=== PATIENT | male | born 1970 | race Caucasian/White ===

== ENCOUNTER 2024-04-29 13:06 | Emergency (ER) | payer OTHER, SELFPAY ==
[2024-04-29 13:09] VITALS: BP 187/104
[2024-04-29 13:15] VITALS: BP 156/114; BMI 25.9
[2024-04-29 13:56] LABS: % Basophils 0.4 % (0-2); % Eosinophils 6.7 % (0-6); % Immature Granulocytes 0.4 % (0-0.5); % Monocytes 9.5 % (1.7-9.3); Absolute Eosinophils 0.5 10^3/uL (0-0.7); Absolute Lymphocytes 1.1 10^3/uL (1.2-3.4); Absolute Monocytes 0.7 10^3/uL (0.1-0.6); Absolute Neutrophils 4.8 10^3/uL (1.4-6.5); Hematocrit 28.4 % (39.0-52.0); Hemoglobin 9.5 g/dL (13.0-18.0); Mean Corp Hgb Conc. 33.5 g/dL (33.0-37.0); Mean Corpuscular Hgb 27.7 pg (27.0-31.0); Mean Corpuscular Volume 82.8 fL (80.0-94.0); Mean Platelet Volume 9.7 fL (7.4-10.4); Nucleated Red Blood Cells % 0 % (-); Platelet Count 237 10^3/uL (130-400); Red Blood Cell Count 3.43 10^6/uL (4.70-6.10); Red Cell Dist. Width 13.8 % (11.5-14.5)
[2024-04-29 14:08] LABS: ALT (SGPT) 15 U/L (0-50); AST (SGOT) 21 U/L (17-59); Albumin 3.9 g/dl (3.5-5.0); Alkaline Phosphatase 83 U/L (38-126); Blood Urea Nitrogen 42 mg/dl (9-20); Calcium 8.8 mg/dl (8.4-10.2); Carbon Dioxide 25 mmol/L (22-30); Chloride 105 mmol/L (98-107); Estimated Creatinine Clearance 43 ml/min; Glucose 120 mg/dl (70-99); Potassium 5.2 mmol/L (3.5-5.1); Sodium 140 mmol/L (135-145); Total Bilirubin 0.2 mg/dl (0.2-1.3); eGFR 33.12
--- NOTE | 2024-04-29 14:14 | ED.GENMED ---
History of Present Illness
<LOGAN Madden - Last Filed: 04/29/24 19:02>
General
Chief Complaint: Extremity Pain (non-traumatic)
Source: patient
Exam Limitations: none
Time Seen by Provider: 04/29/24 13:42
Nursing documentation reviewed up to this point in time: agreed with
History of Present Illness
History of Present Illness:
Patient is a 54-year-old male with PMH of htn , recent dx of renal disease brought by officers from [facility]. Patient reports he does have history of ankle fracture and ankle hardware in his left ankle done by
[facility] Cast[facility]eda years ago. He has been in the incarcerated for the past 1 week and now complains of pain in his left ankle and left lower leg. He reports normally he does get some swelling if he walks a lot throughout the day however while
incarcerated he is not walking. He now is having pain that keeps him up at night. He complains of pain to the ankle lower leg and now the left knee.
He denies any fever chills.
Triage note mentions that patient stopped a toe on his right foot however he is not concerned about this.
Past History
<LOGAN Madden - Last Filed: 04/29/24 19:02>
Past History
ED Past Medical History: HTN, Renal failure (Renal insufficiency), Psychiatric (ADD) and Other (Chronic pain syndrome/chronic left ankle pain�maintained on methadone); Negative CAD
ED Past Surgical History: Orthopedic (Several left ankle surgical procedures)
Social History
Tobacco: Smoker
Alcohol: Occasional (Rare alcohol use)
Drug: Marijuana
Personal: Single
Living: with family
Family History
Family History: Hypertension
Review of Systems
<LOGAN Madden - Last Filed: 04/29/24 19:02>
Review of Systems
Allergies reviewed?: Yes
All Other Systems: ROS reviewed and negative except as documented in HPI and ROS
Constitutional: Reports no symptoms; Denies fever, fatigue or chills
Respiratory: Reports no symptoms
ABD/GI: Reports no symptoms
Musculoskeletal: Reports other (Left ankle lower leg and left knee pain )
Skin: Reports no symptoms
Neurological: Reports no symptoms
Phy Exam
<LOGAN Madden - Last Filed: 04/29/24 19:02>
General Physical Exam
General Presentation: no apparent distress
General age: appears stated age
General Skin: warm and dry
General Habitus: normal
General Mental: alert
Neurological Exam
Neurological Exam: alert
Musculoskeletal Exam
Musculoskeletal Exam: other (Bilateral lower extremities are strong pulses left ankle appears swollen also lower left leg appears swollen along with swelling of the knee. There is no obvious redness on exam to knee lower leg ankle or foot. Patient
is tender to the knee has some discomfort with flexion. )
Skin Exam
Skin Exam: normal color and warm/dry
Psychiatric Exam
Psychiatric Exam: normal mood/affect
Course
<LOGAN Madden - Last Filed: 04/29/24 19:02>
Orders/Labs/Results
Orders:
Orders
04/29/24 13:42
Complete Blood Count/With Diff Urgent
Comprehensive Metabolic Panel Urgent
04/29/24 14:15
Ankle, left 3 view CR [CR Ankle - Left Min 3 Views ] Urgent
Comment:
Reason For Exam: pain
04/29/24 14:16
Knee, Left 4 or More Views [CR Knee - Left 4 Or More View*] Urgent
Comment:
Reason For Exam: pain
Periph Venous Lwr Ext Left US [US Periph Venous LOWER Ext LT] Urgent
Comment:
Reason For Exam: swelling/pain
04/29/24 17:27
Body Fluid Cell Count Urgent
What is the Body Fluid: joint
Date Specimen was Collected: 04/29/24
Time Specimen was Collected: 17:13
Comment: with DIFF
Body Fluid Crystals Urgent
What is the Body Fluid: joint
Date Specimen was Collected: 04/29/24
Time Specimen was Collected: 17:13
Lyme Progressive Urgent
Fluid Culture with Gram Stain Urgent
ANJEL Source: Joint Fluid
Specimen Description:
Date Specimen was Collected: 04/29/24
Time Specimen was Collected: 17:13
Gram Stain Stat
ANJEL Source: Joint
Specimen Description:
Date Specimen was Collected: 04/29/24
Time Specimen was Collected: 17:13
Abnormal Lab Results
04/29/24
13:42
RBC 3.43 L 10^6/uL
(4.70-6.10)
Hgb 9.5 L g/dL
(13.0-18.0)
Hct 28.4 L %
(39.0-52.0)
Absolute Lymphs (auto) 1.1 L 10^3/uL
(1.2-3.4)
Absolute Monos (auto) 0.7 H 10^3/uL
(0.1-0.6)
Lymphocytes % 15.0 L %
(20.5-51.1)
Monocytes % 9.5 H %
(1.7-9.3)
Eosinophils % 6.7 H %
(0-6)
Potassium 5.2 H mmol/L
(3.5-5.1)
BUN 42 H mg/dl
(9-20)
Creatinine 2.3 H mg/dL
(0.7-1.3)
Glucose 120 H mg/dl
(70-99)
04/29/24 13:42
04/29/24 13:42
Vital Signs
Initial and Last Documented VS:
Initial Vital Signs
Temp Pulse Resp BP Pulse Ox
37.0 C 70 22 187/104 100
04/29/24 13:09 04/29/24 13:09 04/29/24 13:09 04/29/24 13:09 04/29/24 13:09
Last Documented Vital Signs
Temp Pulse Resp BP Pulse Ox
36.9 C 86 17 157/85 97
04/29/24 19:00 04/29/24 19:00 04/29/24 19:00 04/29/24 18:00 04/29/24 18:00
Accredited Legal Secretary consulted with Physician
Accredited Legal Secretary consulted with physician?: Yes
Name of Physician Consulted: Dr Lynne
<Eric Lynne MD - Last Filed: 04/29/24 20:16>
Orders/Labs/Results
Orders:
Orders
04/29/24 13:42
Complete Blood Count/With Diff Urgent
Comprehensive Metabolic Panel Urgent
04/29/24 14:15
Ankle, left 3 view CR [CR Ankle - Left Min 3 Views ] Urgent
Comment:
Reason For Exam: pain
04/29/24 14:16
Knee, Left 4 or More Views [CR Knee - Left 4 Or More View*] Urgent
Comment:
Reason For Exam: pain
Periph Venous Lwr Ext Left US [US Periph Venous LOWER Ext LT] Urgent
Comment:
Reason For Exam: swelling/pain
04/29/24 17:27
Body Fluid Cell Count Urgent
What is the Body Fluid: joint
Date Specimen was Collected: 04/29/24
Time Specimen was Collected: 17:13
Comment: with DIFF
Body Fluid Crystals Urgent
What is the Body Fluid: joint
Date Specimen was Collected: 04/29/24
Time Specimen was Collected: 17:13
Lyme Progressive Urgent
Fluid Culture with Gram Stain Urgent
ANJEL Source: Joint Fluid
Specimen Description:
Date Specimen was Collected: 04/29/24
Time Specimen was Collected: 17:13
Gram Stain Stat
ANJEL Source: Joint
Specimen Description:
Date Specimen was Collected: 04/29/24
Time Specimen was Collected: 17:13
Abnormal Lab Results
04/29/24
13:42
RBC 3.43 L 10^6/uL
(4.70-6.10)
Hgb 9.5 L g/dL
(13.0-18.0)
Hct 28.4 L %
(39.0-52.0)
Absolute Lymphs (auto) 1.1 L 10^3/uL
(1.2-3.4)
Absolute Monos (auto) 0.7 H 10^3/uL
(0.1-0.6)
Lymphocytes % 15.0 L %
(20.5-51.1)
Monocytes % 9.5 H %
(1.7-9.3)
Eosinophils % 6.7 H %
(0-6)
Potassium 5.2 H mmol/L
(3.5-5.1)
BUN 42 H mg/dl
(9-20)
Creatinine 2.3 H mg/dL
(0.7-1.3)
Glucose 120 H mg/dl
(70-99)
04/29/24 13:42
04/29/24 13:42
Vital Signs
Initial and Last Documented VS:
Initial Vital Signs
Temp Pulse Resp BP Pulse Ox
37.0 C 70 22 187/104 100
04/29/24 13:09 04/29/24 13:09 04/29/24 13:09 04/29/24 13:09 04/29/24 13:09
Last Documented Vital Signs
Temp Pulse Resp BP Pulse Ox
36.9 C 86 17 157/85 97
04/29/24 19:00 04/29/24 19:00 04/29/24 19:00 04/29/24 18:00 04/29/24 18:00
Procedures
<Eric Lynne MD - Last Filed: 04/29/24 20:16>
Incision/Drainage/Joint Aspiration
Left Knee:
Anethesia: 1% Lidocaine with Epi
Preparation: cleaned with Betadine
Type of procedure: aspiration
Nature of site: other (Joint effusion)
How much fluid was obtained?: number in mls (50)
Fluid description: straw colored
Treatment: bandaid applied
<LOGAN Madden - Last Filed: 04/29/24 19:02>
MDM/Problems Addressed
MDM/Problems Addressed:
Patient is document is a 54-year-old male from [facility] with history of previous left ankle injury/ hardware presents complaining of pain and swelling to left ankle lower leg and knee. He denies any actual injury to the knee but does have pain. He
denies any fever or chills. He does report he has chronic kidney disease.
On exam there is no obvious redness though he does have swelling to the ankle lower leg and knee. He is afebrile and denies any fevers his white count is normal at 7.0. His hemoglobin is now at 9.5 since he was last here he reports he was
diagnosed with chronic kidney disease. He has no complaints of weakness or black stools.
Case reviewed with Dr. Samuels who examined patient and did drain knee.
Cultures reviewed show of fluid white blood cell count of 594 no crystals were seen Lyme is pending.
No acute findings on x-rays of knee and ankle. Hardware appears to be in place. Ultrasound negative. As discussed with ED attending , stable for discharge back to alf will recommend Tylenol and outpatient Ortho follow-up
<LOGAN Madden - Last Filed: 04/29/24 19:02>
*Critical Care Note
Total Time (30-74mins, 75-104mins- exclusive of procedures): Not Applicable
ED Attending Note
<LOGAN Madden - Last Filed: 04/29/24 19:02>
-
Portions of this chart may have been created with voice recognition software.� Occasional wrong word or��sound alike� substitutions may have occurred due to the inherent limitations of voice recognition software.
<Eric Lynne MD - Last Filed: 04/29/24 20:16>
ED Attending Note
Patient seen and examined by attending physician: Yes
ED Attending Note:
I have seen and evaluated the patient with a [id number] encounter. I have spoken to the advance practicer provider and involved in the medical history, the physical exam, medical decision making.
Evaluation and management service: agree unless noted differently below.
Results interpretation: agree unless noted differently below.
Focused HPI: 54-year-old male with history as documented presents to the emergency room from [facility] for evaluation of left leg pain specifically in the left knee. Patient reports that in 2018 he had fracture and required surgery on his left ankle.
He says that since then he has had occasional pain with activity in the left leg. He says that over the past few days he has had pain despite decreased level of activity while incarcerated. He denies any fall or trauma. He says pain is down the
entire right leg but mostly in the medial knee. He notes some swelling of the leg particularly in the knee. Denies any fevers or chills. He denies any chest pain or shortness of breath. Denies any other complaints. Awake alert not in distress.
Physical exam: Vital signs significant for hypertension otherwise normal. He has some edema around the left ankle but no point tenderness in the foot or ankle; no calf edema or tenderness; has a large left knee joint effusion. No erythema or
warmth of the joint. Range of motion of the left knee limited to about 90 degrees due to effusion/pain. No tenderness in the thigh or edema in the left thigh. He has a good strong palpable left femoral, popliteal, DP and PT pulse.
Medical Decision Makin-year-old male presents for atraumatic left leg pain specifically in the left knee. He has a large left knee effusion. He had labs sent off in triage which showed anemia and chronic kidney disease which is known to the
patient. No leukocytosis. He had a DVT study done which negative. He had x-rays which I reviewed and showed no fracture. I performed arthrocentesis, will send joint fluid for cell count and culture, crystal studies. Patient had significant
symptomatic improvement after draining of his joint effusion for approximately 50 cc.
Fluid studies reviewed�WBC 594, no crystals seen. Not consistent with septic arthritis or inflammatory arthritis/gout. Suspect that this is likely osteoarthritis with joint effusion as a cause for his symptoms. They have improved with
arthrocentesis. Stable for discharge. Tylenol as needed.
Discharge Plan
Departure
Patient Disposition: [facility]
Date of Disposition: 04/29/24
Time of Disposition: 18:49
Patient with high blood pressure during this ER visit?: Yes
Condition: Fair
Covid-19: Not Applicable
Discharge Problem:
Acute knee pain, Ankle pain
Prescriptions:
No Action
methadone 10 mg Tablet
20 mg PO TID
Patient Comments:
called [facility] [phone]- last filled on 09/13/22 for a #180 for 30 days supply
amlodipine [Norvasc] 10 mg Tablet
10 mg PO DAILY
dextroamphetamine-amphetamine [Adderall] 20 mg Tablet
20 mg PO DAILY
Patient Comments:
called [facility] [phone]- last filled on 09/24/22 for a #30 for 30 days supply
clonidine HCl 0.2 mg Tablet
0.2 mg PO TID
Referrals:
[facility] [Family Provider] -
Activity Restrictions/Additional Instructions:
It is recommended the patient be evaluated by orthopedics. Patient had a knee effusion which was drained here in the ER no evidence of infection.
X-rays of ankle were also done which does show that hardware is in place.
patient had a negative ultrasound of left leg.
Patient may have Tylenol as needed for discomfort
Interventions
Interventions:
*Risk Screen - Suicide Last Done: 04/29/24 13:06
*General Assessment Last Done: 04/29/24 13:06
*Neglect/Abuse Screening Last Done: 04/29/24 13:06
ED- Fall Risk Assessment Last Done: 04/29/24 13:06
*Nursing Disposition Last Done: 04/29/24 19:00
ED-Skin Assessment Last Done: 04/29/24 13:06
ED-Peripheral Vascular Assessment Last Done: 04/29/24 13:06
ED-Musculoskeletal Assessment Last Done: 04/29/24 13:06
Discharge Date and Time
Discharge Date/Time: 04/29/24 18:59
Print Language: SURINAMESE
[2024-04-29 18:00] VITALS: BP 157/85
[2024-04-29 18:13] LABS: Body Fluid Mononuclear 47.1 %; Body Fluid Polymorphonuclear 52.9 %; Body Fluid WBC 594 /CUMM
[2024-04-29 18:30] LABS: Body Fluid Second Tech CMC
[2024-04-30 15:41] LABS: Lyme Antibody Screen, EIA Negative (Negative)
== END 2024-04-29 18:59 ==
LOC: EMR 13:06
PROVIDERS: Emergency Medicine; EMERGENCY PHYSICIAN Emergency Medicine
DX: M25.562 Pain in left knee (principal); M25.572 Pain in left ankle and joints of left foot; M25.462 Effusion, left knee; M79.662 Pain in left lower leg; R60.0 Localized edema; R03.0 Elevated blood-pressure reading, without diagnosis of hypertension; I12.9 Hypertensive chronic kidney disease with stage 1 through stage 4 chronic kidney disease, or unspecified chronic kidney disease; N18.9 Chronic kidney disease, unspecified; G89.4 Chronic pain syndrome; F17.200 Nicotine dependence, unspecified, uncomplicated; Z79.891 Long term (current) use of opiate analgesic
CPT/HCPCS: 99284; 20610; 73564; 73610; 80053; 85025; 86618; 87015; 87070; 87205; 89051; 89060; 93971

== ENCOUNTER 2024-05-25 18:43 | Inpatient (IN) | payer OTHER, SELFPAY ==
[2024-05-25] VITALS (18 sets, daily range): BP systolic 151–224; BP diastolic 99–129; BMI 26.7
--- NOTE | 2024-05-25 09:53 | ED.GENMED ---
History of Present Illness
<Chauncey Whitmore Jr., PA-C - Last Filed: 05/26/24 15:07>
General
Chief Complaint: Chest Pain
Source: patient
Exam Limitations: none
Time Seen by Provider: 05/25/24 09:33
Nursing documentation reviewed up to this point in time: agreed with
History of Present Illness
History of Present Illness:
54-year-old male past medical history of hypertension previous substance abuse presenting from long term with concerns of intermittent achy left-sided chest discomfort of the past few days. He did have an episode earlier today was given aspirin and
nitro en route with improvement. No ongoing symptoms at this point. Does have a slight associated shortness of breath. Denies any fevers recent illness, vomiting. No history of heart disease.
Past History
<Chauncey Whitmore Jr., PA-C - Last Filed: 05/26/24 15:07>
Past History
ED Past Medical History: HTN, Renal failure (Renal insufficiency), Psychiatric (ADD) and Other (Chronic pain syndrome/chronic left ankle pain�maintained on methadone); Negative CAD
ED Past Surgical History: Orthopedic (Several left ankle surgical procedures)
Social History
Tobacco: Smoker
Alcohol: Occasional (Rare alcohol use)
Drug: Marijuana
Personal: Single
Living: with family
Family History
Family History: Hypertension
Review of Systems
<Chauncey Whitmore Jr., PA-C - Last Filed: 05/26/24 15:07>
Review of Systems
Allergies reviewed?: Yes
All Other Systems: ROS reviewed and negative except as documented in HPI and ROS
Phy Exam
<Chauncey Whitmore Jr., PA-C - Last Filed: 05/26/24 15:07>
Physical Exam
Physical Exam:
GENERAL: Alert , in no apparent distress
EYE: pupils equal and reactive
NECK: Supple, no significant adenopathy.
ENT: o/p clr, mmm.
CARDIAC: Regular rate and rhythm .
LUNGS: Clear breath sounds bilaterally, no acute respiratory distress, no wheezes/rales/rhonchi
ABDOMEN: Soft, without focal tenderness, no r/g, no cvat
NEUROLOGICAL: Alert and oriented, no focal neuro deficits
SKIN: Warm and dry, skin intact.
MUSCULOSKELETAL: No edema, well perfused.
PSYCH: Normal and appropriate interaction.
Scores
<Chasity Cordoba [employer] - Last Filed: 05/25/24 22:38>
Heart Score for Chest Pain Patients
STEMI patient?: Not applicable
Course
<Chauncey Whitmore Jr., PA-C - Last Filed: 05/26/24 15:07>
Orders/Labs/Results
Orders:
Orders
05/25/24 09:36
EKG [Electrocardiogram (*1)] Urgent
Reason for Study: Chest Pain
EKG- Treatment ONCE
05/25/24 09:50
CR Chest - 2 Views Urgent
Comment:
Reason For Exam: cp
05/25/24 Lunch
Cholesterol Lowering
At Your Request: Full Participation
Does patient need a safe tray?: Yes
Cholesterol Lowering: Sodium, 2 Gram
05/25/24 10:07
Alcohol Urgent
Complete Blood Count/With Diff Urgent
Comprehensive Metabolic Panel Urgent
Magnesium Urgent
Troponin I Urgent
05/25/24 11:06
Chest Angio w/wo Contrast CT [CT Chest Angio W/wo Iv Contras] Urgent
Comment:
Reason For Exam: cp abdnomal cxr aorta
05/25/24 11:43
0.9% Sodium Chloride 250 ml [Nss] 250 ml IV BOLUS
05/25/24 12:33
EKG [Electrocardiogram (*1)] Urgent
Reason for Study: Chest Pain
05/25/24 12:34
EKG- Treatment ONCE
05/25/24 13:22
Troponin I Urgent
05/25/24 14:34
Acetaminophen [Tylenol] 1,000 mg PO NOW STA
Clonidine [Catapres] 0.3 mg PO NOW STA
Diphenhydramine [Benadryl] 25 mg IV NOW STA
Ketorolac [Toradol] 15 mg IV NOW STA
Metoclopramide [Reglan] 10 mg IV NOW STA
05/25/24 14:38
Famotidine [Pepcid] 20 mg IV NOW STA
05/25/24 14:39
EKG [Electrocardiogram (*1)] Urgent
Reason for Study: Chest Pain
EKG- Treatment ONCE
05/25/24 17:03
HydrALAZINE [Apresoline] 10 mg IV NOW STA
05/25/24 18:24
Admit/Transfer Patient As Directed
Co-Sign Provider:
Level of Care: Inpatient admission
Assign to:: Telemetry
Physician / Group: boyer/hospitalist
Diagnosis: HTN/Chest pain
Reason for Telemetry: Chest Pain syndromes
Date to Stop Telemetry: 05/27/24
Time to Stop Telemetry: 11:00
Reason for Hospitalization: HTN/Chest pain
Expected length of stay greater than two midnights?: Yes
ELOS- Estimated Length of Stay in days: 3
I certify the patient meets the requirements for IP care: Yes
Code Status As Directed
Resuscitation Status: Full Code
PRN Pain Medication Management As Directed
May give lesser potent ordered pain med per pt: Yes
preference::
Protocol:: Medication orders for pain may be administered in a
manner that supports deferring to patient preference
when the pt is:
- Requesting an ordered lesser potent pain medication.
Least to most potent pain medications are defined
as: acetaminophen < NSAID < tramadol < opioids
(morphine, oxycodone, hydromorphone).
- Requesting a lesser dose of the same medication IF
ORDERED.
- Requesting a less intrusive route of administration
if both routes are prescribed by the provider (PO <
IV).
05/25/24 19:23
0.9% Sodium Chloride 1000 ml [Nss] 1,000 ml IV 80 mls/hr
Amlodipine [Norvasc] 10 mg PO DAILY
Bisacodyl [Dulcolax] 10 mg RECTAL [id number] PRN
Docusate W/Senna [Senokot-S] 1 tablet PO BIDPRN PRN
HYDROmorphone [Dilaudid] 0.25 mg IV Q4HPRN PRN
HydrALAZINE [Apresoline] 10 mg IV Q6HPRN PRN
Ondansetron Injectable [Zofran] 4 mg IV Q6HPRN PRN
Polyethylene Glycol Powder [Miralax] 17 grams PO DAILYPRN PRN
05/25/24 19:23
Urinalysis Reflex To Culture Routine
Urine Drug Abuse Screen Routine
Activity As Directed
Activity Level: Out of Bed-Early Mobility
Bladder Scan As Directed
Follow Bladder Retention/Intermittent Cath Algorithm?: Yes
PRN if no void in __ hours: 6
Frequency: Per Retention Algorithm
If Bladder Scan Result >: 400
then:: Straight cath
Straight Cath As Directed
Frequency: Per Retention Algorithm
Additional Instructions: straight cath as needed per acute urinary retention algorithm for 24 hrs
Additional Instructions: for bladder scan greater than 400 mL
Vital Signs As Directed
Frequency: Per unit guidelines
DX Deep Vein Thrombosis Video Routine
05/25/24 20:00
HydrALAZINE [Apresoline] 25 mg PO BID
05/25/24 21:00
Acetaminophen [Tylenol] 650 mg PO Q4HPRN PRN
05/25/24 22:00
Clonidine [Catapres] 0.3 mg PO TID
Dicyclomine [Bentyl] 10 mg PO TID
Nortriptyline [Pamelor] 25 mg PO HS
Tamsulosin [Flomax] 0.8 mg PO HS
05/26/24 00:00
Heparin 5,000 units SC Q8
05/26/24 08:00
Buprenorphine [Subutex] 16 mg SL DAILY
Escitalopram Oxalate [Lexapro] 15 mg PO DAILY
05/26/24 09:19
Basic Metabolic Panel IN AM
Magnesium IN AM
NT-proBNP IN AM
05/27/24 06:00
Basic Metabolic Panel IN AM
05/27/24 11:00
DC Protocol for Telemetry ONCE
05/28/24 06:00
Basic Metabolic Panel IN AM
Abnormal Lab Results
05/25/24
10:07
RBC 3.57 L 10^6/uL
(4.70-6.10)
Hgb 10.2 L g/dL
(13.0-18.0)
Hct 31.1 L %
(39.0-52.0)
MCHC 32.8 L g/dL
(33.0-37.0)
Absolute Lymphs (auto) 1.1 L 10^3/uL
(1.2-3.4)
Absolute Eos (auto) 0.8 H 10^3/uL
(0-0.7)
Lymphocytes % 15.1 L %
(20.5-51.1)
Eosinophils % 10.3 H %
(0-6)
BUN 44 H mg/dl
(9-20)
Creatinine 2.1 H mg/dL
(0.7-1.3)
Glucose 108 H mg/dl
(70-99)
05/25/24 10:07
05/25/24 10:07
Vital Signs
Initial and Last Documented VS:
Initial Vital Signs
Temp Pulse Resp BP Pulse Ox
98.3 F 61 16 174/108 98
05/25/24 09:31 05/25/24 09:31 05/25/24 09:31 05/25/24 09:31 05/25/24 09:31
Last Documented Vital Signs
Temp Pulse Resp BP Pulse Ox
97.9 F 58 12 146/82 99
05/26/24 07:00 05/26/24 07:00 05/26/24 07:00 05/26/24 11:47 05/26/24 07:00
<Chasity Cordoba [employer] - Last Filed: 05/25/24 22:38>
Orders/Labs/Results
Orders:
Orders
05/25/24 09:36
EKG [Electrocardiogram (*1)] Urgent
Reason for Study: Chest Pain
EKG- Treatment ONCE
05/25/24 09:50
CR Chest - 2 Views Urgent
Comment:
Reason For Exam: cp
05/25/24 Lunch
Cholesterol Lowering
At Your Request: Full Participation
Does patient need a safe tray?: Yes
Cholesterol Lowering: Sodium, 2 Gram
05/25/24 10:07
Alcohol Urgent
Complete Blood Count/With Diff Urgent
Comprehensive Metabolic Panel Urgent
Magnesium Urgent
Troponin I Urgent
05/25/24 11:06
Chest Angio w/wo Contrast CT [CT Chest Angio W/wo Iv Contras] Urgent
Comment:
Reason For Exam: cp abdnomal cxr aorta
05/25/24 11:43
0.9% Sodium Chloride 250 ml [Nss] 250 ml IV BOLUS
05/25/24 12:33
EKG [Electrocardiogram (*1)] Urgent
Reason for Study: Chest Pain
05/25/24 12:34
EKG- Treatment ONCE
05/25/24 13:22
Troponin I Urgent
05/25/24 14:34
Acetaminophen [Tylenol] 1,000 mg PO NOW STA
Clonidine [Catapres] 0.3 mg PO NOW STA
Diphenhydramine [Benadryl] 25 mg IV NOW STA
Ketorolac [Toradol] 15 mg IV NOW STA
Metoclopramide [Reglan] 10 mg IV NOW STA
05/25/24 14:38
Famotidine [Pepcid] 20 mg IV NOW STA
05/25/24 14:39
EKG [Electrocardiogram (*1)] Urgent
Reason for Study: Chest Pain
EKG- Treatment ONCE
05/25/24 17:03
HydrALAZINE [Apresoline] 10 mg IV NOW STA
05/25/24 18:24
Admit/Transfer Patient As Directed
Co-Sign Provider:
Level of Care: Inpatient admission
Assign to:: Telemetry
Physician / Group: boyer/hospitalist
Diagnosis: HTN/Chest pain
Reason for Telemetry: Chest Pain syndromes
Date to Stop Telemetry: 05/27/24
Time to Stop Telemetry: 11:00
Reason for Hospitalization: HTN/Chest pain
Expected length of stay greater than two midnights?: Yes
ELOS- Estimated Length of Stay in days: 3
I certify the patient meets the requirements for IP care: Yes
Code Status As Directed
Resuscitation Status: Full Code
PRN Pain Medication Management As Directed
May give lesser potent ordered pain med per pt: Yes
preference::
Protocol:: Medication orders for pain may be administered in a
manner that supports deferring to patient preference
when the pt is:
- Requesting an ordered lesser potent pain medication.
Least to most potent pain medications are defined
as: acetaminophen < NSAID < tramadol < opioids
(morphine, oxycodone, hydromorphone).
- Requesting a lesser dose of the same medication IF
ORDERED.
- Requesting a less intrusive route of administration
if both routes are prescribed by the provider (PO <
IV).
05/25/24 19:23
0.9% Sodium Chloride 1000 ml [Nss] 1,000 ml IV 80 mls/hr
Amlodipine [Norvasc] 10 mg PO DAILY
Bisacodyl [Dulcolax] 10 mg RECTAL [id number] PRN
Docusate W/Senna [Senokot-S] 1 tablet PO BIDPRN PRN
HYDROmorphone [Dilaudid] 0.25 mg IV Q4HPRN PRN
HydrALAZINE [Apresoline] 10 mg IV Q6HPRN PRN
Ondansetron Injectable [Zofran] 4 mg IV Q6HPRN PRN
Polyethylene Glycol Powder [Miralax] 17 grams PO DAILYPRN PRN
05/25/24 19:23
Urinalysis Reflex To Culture Routine
Urine Drug Abuse Screen Routine
Activity As Directed
Activity Level: Out of Bed-Early Mobility
Bladder Scan As Directed
Follow Bladder Retention/Intermittent Cath Algorithm?: Yes
PRN if no void in __ hours: 6
Frequency: Per Retention Algorithm
If Bladder Scan Result >: 400
then:: Straight cath
Straight Cath As Directed
Frequency: Per Retention Algorithm
Additional Instructions: straight cath as needed per acute urinary retention algorithm for 24 hrs
Additional Instructions: for bladder scan greater than 400 mL
Vital Signs As Directed
Frequency: Per unit guidelines
DX Deep Vein Thrombosis Video Routine
05/25/24 20:00
HydrALAZINE [Apresoline] 25 mg PO BID
05/25/24 21:00
Acetaminophen [Tylenol] 650 mg PO Q4HPRN PRN
05/25/24 22:00
Clonidine [Catapres] 0.3 mg PO TID
Dicyclomine [Bentyl] 10 mg PO TID
Nortriptyline [Pamelor] 25 mg PO HS
Tamsulosin [Flomax] 0.8 mg PO HS
05/26/24 00:00
Heparin 5,000 units SC Q8
05/26/24 08:00
Buprenorphine [Subutex] 16 mg SL DAILY
Escitalopram Oxalate [Lexapro] 15 mg PO DAILY
05/26/24 09:19
Basic Metabolic Panel IN AM
Magnesium IN AM
NT-proBNP IN AM
05/27/24 06:00
Basic Metabolic Panel IN AM
05/27/24 11:00
DC Protocol for Telemetry ONCE
05/28/24 06:00
Basic Metabolic Panel IN AM
Abnormal Lab Results
05/25/24
10:07
RBC 3.57 L 10^6/uL
(4.70-6.10)
Hgb 10.2 L g/dL
(13.0-18.0)
Hct 31.1 L %
(39.0-52.0)
MCHC 32.8 L g/dL
(33.0-37.0)
Absolute Lymphs (auto) 1.1 L 10^3/uL
(1.2-3.4)
Absolute Eos (auto) 0.8 H 10^3/uL
(0-0.7)
Lymphocytes % 15.1 L %
(20.5-51.1)
Eosinophils % 10.3 H %
(0-6)
BUN 44 H mg/dl
(9-20)
Creatinine 2.1 H mg/dL
(0.7-1.3)
Glucose 108 H mg/dl
(70-99)
05/25/24 10:07
05/25/24 10:07
Vital Signs
Initial and Last Documented VS:
Initial Vital Signs
Temp Pulse Resp BP Pulse Ox
98.3 F 61 16 174/108 98
05/25/24 09:31 05/25/24 09:31 05/25/24 09:31 05/25/24 09:31 05/25/24 09:31
Last Documented Vital Signs
Temp Pulse Resp BP Pulse Ox
97.9 F 58 12 146/82 99
05/26/24 07:00 05/26/24 07:00 05/26/24 07:00 05/26/24 11:47 05/26/24 07:00
<Chauncey Whitmore Jr., PA-C - Last Filed: 05/26/24 15:07>
MDM/Problems Addressed
MDM/Problems Addressed:
54-year-old male presenting to the emergency department today with concerns of chest pain intermittently described as aching to the left chest over the past few days no specific palliation or provocation slight associated shortness of breath. No
nausea vomiting fevers recent illness. Upon arrival blood pressure is elevated otherwise vital signs are normal. No history of blood clots recent trauma surgery immobilization, leg swelling. Low risk for PE. Initial EKG normal. Labs obtained
showing normal troponin level creatinine level at patient's baseline. Patient did claim to have ongoing chest discomforts chest x-ray showing tortuosity of the aorta considering this CT scan was performed that did not show any emergent findings.
EKG was repeated as well as troponin repeated which was both normal. Patient claims that he did not have recurrence of worsening chest discomfort.
<Chasity Cordoba NP - Last Filed: 05/25/24 22:38>
MDM/Problems Addressed
MDM/Problems Addressed:
54-year-old male presenting to the emergency department today with concerns of chest pain intermittently described as aching to the left chest over the past few days no specific palliation or provocation slight associated shortness of breath. No
nausea vomiting fevers recent illness. Upon arrival blood pressure is elevated otherwise vital signs are normal. No history of blood clots recent trauma surgery immobilization, leg swelling. Low risk for PE. Initial EKG normal. Labs obtained
showing normal troponin level creatinine level at patient's baseline. Patient did claim to have ongoing chest discomforts chest x-ray showing tortuosity of the aorta considering this CT scan was performed that did not show any emergent findings.
EKG was repeated as well as troponin repeated which was both normal. Patient claims that he did not have recurrence of worsening chest discomfort.
4:00 p.m.
BP 168/99, pt sleeping
5:00 PM:
Patient is awake but groggy, denies chest pain, denies headache but his head feels groggy
Case discussed with Dr. Blandon who recommends hydralazine 10 mg IV and reevaluate
5:50 p.m
After Hydralazine IV, BP remains 187/105
Pt came to the emergency department today with concerns of chest discomfort. He had a reassuring examination with multiple normal EKGs and troponin levels as well as a CT scan without emergent findings. Found to have an incidental finding on CT
scan of liver as well as kidney cysts. Pt informed of these and recommended follow closely with the primary care doctor for repeated imaging as an outpatient.
Pt denies CP, headache
Discussed with Dr Blandon who agrees admit with hypertensive urgency
Hospitalist notified of admission
<Chasity Cordoba NP - Last Filed: 05/25/24 22:38>
*Critical Care Note
Total Time (30-74mins, 75-104mins- exclusive of procedures): Not Applicable
ED Attending Note
<Chauncey Whitmore Jr., PA-C - Last Filed: 05/26/24 15:07>
-
Portions of this chart may have been created with voice recognition software.� Occasional wrong word or��sound alike� substitutions may have occurred due to the inherent limitations of voice recognition software.
Discharge Plan
Departure
Patient Disposition: Admit
Date of Disposition: 05/25/24
Time of Disposition: 18:00
Admit to: Med/Surg
Presentation/result/management discussed w/ accepting MD/DO: Hospitalist
Patient with high blood pressure during this ER visit?: No
Condition: Good
Covid-19: Not Applicable
Discharge Problem:
Hypertensive urgency, Chest pain
Interventions
Interventions:
*Risk Screen - Suicide Last Done: 05/25/24 09:31
*General Assessment Last Done: 05/25/24 09:31
*Neglect/Abuse Screening Last Done: 05/25/24 09:31
ED- Fall Risk Assessment Last Done: 05/25/24 10:26
*ED COVID-19 Vaccine History Last Done: 05/25/24 10:24
*Nursing Disposition Last Done: 05/25/24 19:18
ED- Cardiac Assessment Last Done: 05/25/24 10:24
Discharge Date and Time
Discharge Date/Time: 05/25/24 19:19
[2024-05-25 10:14] LABS: % Basophils 0.4 % (0-2); % Eosinophils 10.3 % (0-6); % Immature Granulocytes 0.3 % (0-0.5); % Lymphocytes 15.1 % (20.5-51.1); % Monocytes 7.7 % (1.7-9.3); % Neutrophils 66.2 % (42.2-75.2); Absolute Eosinophils 0.8 10^3/uL (0-0.7); Absolute Lymphocytes 1.1 10^3/uL (1.2-3.4); Absolute Monocytes 0.6 10^3/uL (0.1-0.6); Absolute Neutrophils 4.9 10^3/uL (1.4-6.5); Hematocrit 31.1 % (39.0-52.0); Hemoglobin 10.2 g/dL (13.0-18.0); Mean Corp Hgb Conc. 32.8 g/dL (33.0-37.0); Mean Corpuscular Hgb 28.6 pg (27.0-31.0); Mean Corpuscular Volume 87.1 fL (80.0-94.0); Mean Platelet Volume 9.8 fL (7.4-10.4); Nucleated Red Blood Cells % 0 % (-); Platelet Count 157 10^3/uL (130-400); Red Blood Cell Count 3.57 10^6/uL (4.70-6.10); White Blood Cell Count 7.4 10^3/uL (4.8-10.8)
[2024-05-25 10:28] LABS: ALT (SGPT) 16 U/L (0-50); AST (SGOT) 22 U/L (17-59); Albumin 3.9 g/dl (3.5-5.0); Alkaline Phosphatase 62 U/L (38-126); Blood Urea Nitrogen 44 mg/dl (9-20); Calcium 8.8 mg/dl (8.4-10.2); Carbon Dioxide 30 mmol/L (22-30); Chloride 102 mmol/L (98-107); Glucose 108 mg/dl (70-99); Magnesium 1.9 mg/dl (1.6-2.3); Potassium 5.1 mmol/L (3.5-5.1); Sodium 139 mmol/L (135-145); Total Bilirubin 0.3 mg/dl (0.2-1.3); Total Protein 6.9 g/dl (6.3-8.2); eGFR 36.95
[2024-05-25 10:39] LABS: Troponin I < 0.012 ng/ml
[2024-05-25] MEDS: NSS 250 IV (12:24)
[2024-05-25 13:58] LABS: Troponin I < 0.012 ng/ml
[2024-05-25] MEDS: TYLENOL 1000 MG PO (14:48)
[2024-05-25] MEDS: TORADOL 15 MG IV (14:49)
[2024-05-25] MEDS: CATAPRES 0.3 MG PO (14:49)
[2024-05-25] MEDS: PEPCID 20 MG IV (14:51)
[2024-05-25] MEDS: BENADRYL 25 MG IV (14:51)
[2024-05-25] MEDS: REGLAN 10 MG IV (14:52)
[2024-05-25] MEDS: APRESOLINE 10 MG IV ×2 (17:27→22:37)
--- NOTE | 2024-05-25 18:11 | HPS.HSE ---
Addendum entered and electronically signed by Tim Hernandez MD 05/25/24 18:36:
Allergies
Allergy/AdvReac Type Severity Reaction Status Date / Time
No Known Allergies Allergy Verified 05/25/24 09:30
Home Medications
acetaminophen 325 mg tablet 650 mg PO BIDPRN PRN mild pain 05/25/24
buprenorphine HCl 8 mg sublingual tablet 16 mg sublingual DAILY 05/25/24
clonidine HCl 0.3 mg tablet 0.3 mg PO TID 05/25/24
dicyclomine 10 mg capsule 10 mg PO TID 05/25/24
docusate sodium 100 mg capsule 100 mg PO BIDPRN PRN constipation 05/25/24
escitalopram oxalate 10 mg tablet 15 mg PO DAILY 05/25/24
hydralazine 25 mg tablet 25 mg PO DAILY 05/25/24
lisinopril 20 mg tablet 20 mg PO DAILY 05/25/24
nortriptyline 25 mg capsule 25 mg PO HS 05/25/24
tamsulosin 0.4 mg capsule 0.8 mg PO HS 05/25/24
Original Note:
Family Physician
-
Family Physician: [facility]. Correction
Chief Complaint
-
Chest pain
History of Present Illness
54-year-old male who is presenting from the [facility] with complaints of chest discomfort. Patient received aspirin and nitroglycerin. Patient in the ER was evaluated. Patient complains that the chest pain has resolved and now complains of shortness
of breath at rest. Denies any PND, orthopnea, and lower extremity edema. Denies any aggravating alleviating factors. States nitroglycerin did not help with the chest pain. Denies any prior cardiac history. Does not recall name of blood
pressure medication he takes on regular basis. Used to drugs in the past. In the ER patient underwent CT angiogram with IV contrast with creatinine of 2.1 on admission. In addition patient also received clonidine, Reglan, Benadryl, Toradol,
hydralazine, Pepcid and IV fluids. Patient also complaining of decreased urinary stream and hesitation for the past few weeks. Denies dysuria. Denies any nausea or vomiting. Denies any blurry vision or headache.
Medical History
Past Medical History
Past Medical History: Reports Other
Additional Past Medical History:
Primary hypertension
CKD stage IV
History of tobacco abuse
History of drug abuse/meth
Anemia
Past Surgical History: Reports Orthopedic (Ankle surgery)
Social History
Tobacco: Former Smoker (Used to smoke 1-1.5 packs/day.-)
Alcohol: Former
Drug: Former User
Family History
Family History: Not pertinent
Allergies / Home Medications
Allergies reflects when Allergies were last updated in [employer].
Home Medications with original date entered in [employer]
Allergy/Medication List:
Medications on admission are unable to be verified or confirmed at this time.
Review of Systems
-
History Source: Patient
A 12 point ROS was completed and negative except as noted: Yes
Physical Exam
Vital Signs
Vital Signs
Temp Pulse Resp BP Pulse Ox
98.3 F 52 13 187/105 98
05/25/24 09:31 05/25/24 17:45 05/25/24 17:45 05/25/24 17:35 05/25/24 09:31
Physical Exam
General: Well Developed, Well Nourished and No Apparent Distress
HEENT: NormoCephalic, Anicteric, Moist mucous membranes, Atraumatic, No Ptosis, Nose Appears Normal and Ears Appear Normal
Respiratory: Clear and Non Labored Respirations; No Accessory Resp Muscle Use
Cardiac: S1/S2, Regular Rhythm and Bradycardia; No Murmur, Rub, Peripheral Edema or JVD
GI: Soft, Non Tender, Non Distended and Normal Bowel Sounds; No Organomegaly
Rectal: Deferred by Provider
Musculoskeletal: No Clubbing, No Cyanosis and No Edema
Skin: No Rash
Neuro: Awake, Alert, Oriented, AO x 3, No Motor Deficits and Nonfocal/grossly intact
Psych: Calm
Laboratory Results
-
05/25/24 10:07
05/25/24 10:07
Laboratory Results
Total Bilirubin 0.3 mg/dl (0.2-1.3) 05/25/24 10:07
AST 22 U/L (17-59) 05/25/24 10:07
ALT 16 U/L (0-50) 05/25/24 10:07
Alkaline Phosphatase 62 U/L (38-126) 05/25/24 10:07
Troponin I < 0.012 ng/ml 05/25/24 13:22
Data Reviewed
-
Diagnostic Radiology: Report Reviewed by me and Discussed with Patient
CT Scan: Report Reviewed by me and Discussed with Patient
Lab Data: Labs Reviewed by me and Discussed with Patient
Impression/Plan
-
#Hypertension urgency suspected noncompliance
#Primary hypertension
Awaiting home med rec
Patient with history of CKD. Patient also has bradycardia
Start patient on hydralazine p.o. and IV as needed
? On Norvasc at home. Can start patient on 10 mg of Norvasc
Check patient UDS and alcohol level
#Chest pain atypical
Troponin x 2 check found to be negative
Trend for 1 more set
EKG with normal sinus rhythm. Ventricular rate of 50. Sinus bradycardia. Possible J-point elevation (which was also noted on EKG from 10/18/2022).
Nitroglycerin as needed for chest pain
Avoids NSAIDs
Check patient UDS and alcohol level
CT angiogram was performed in ER negative for dissection aneurysm hematoma or ulcer. Negative for pulmonary embolism. No pericardial effusion.
#CKD stage IV
Patient with creatinine of 2.1. Patient received IV contrast W/CT chest in ER
Will give patient slow Normal Saline IV fluids additional to prevent ATN/contrast nephropathy overnight x 1L only.
Patient also states of decreased urinary stream
Check UA
Bladder scan and straight cath per the protocol
If retention may need to start Flomax
#Normocytic anemia
Trend hemoglobin for now
History of tobacco abuse
History of polysubstance abuse
History of ADD
DVT prophylaxis heparin subcu
Full code
Awaiting home med reconciliation
I spent a total of 77 minutes with the patient or on the floor. More than 50% of this time involved counseling and coordination of care.
[2024-05-25] MEDS: NSS 1000 IV (20:04)
[2024-05-25] MEDS: APRESOLINE 25 MG PO (20:10)
[2024-05-25] MEDS: SENOKOT-S 1 TABLET PO (20:10)
[2024-05-25] MEDS: NORVASC 10 MG PO (20:10)
[2024-05-25 22:10] LABS: Alcohol None Detected
[2024-05-26] VITALS (8 sets, daily range): BP systolic 118–214; BP diastolic 66–115
--- NOTE | 2024-05-26 | PTCARENOTE ---
Patient received from in bed, Patient shackled to bed at right foot. 2 [facility] guards with patient. Patient visibly uncomfortable, states he has been unable to void and is unsure when the last time he voided was. Patient assisted to standing
position at bedside, patient able to void in urinal while standing, 1200 ml of clear yellow urine in urinal. Patient still reports a sensation of needing to urinate. Bladder remains distended, firm. Bladder scan amount 471 ml. Patient catheterized
for 500ml of urine. Patient reports relief in abdominal pain. BP 215/114 upon transfer to . See MAR. Pt. c/o MAE. Medicated per orders. Care ongoing, guards remain at bedside. Will continue to monitor.
[2024-05-26] MEDS: CATAPRES 0.3 MG PO ×4 (00:03→21:42)
[2024-05-26] MEDS: FLOMAX 0.8 MG PO ×2 (00:03→21:42)
[2024-05-26] MEDS: PAMELOR 25 MG PO ×2 (00:07→21:42)
[2024-05-26] MEDS: HEPARIN 5000 UNITS SC ×3 (00:07→16:28)
[2024-05-26] MEDS: DILAUDID 0.25 MG IV (00:10)
[2024-05-26] MEDS: BENTYL PO (00:25)
[2024-05-26] MEDS: SUBUTEX 16 MG SL (08:34)
[2024-05-26] MEDS: TYLENOL 650 MG PO (08:34)
[2024-05-26] MEDS: BENTYL 10 MG PO (08:35)
[2024-05-26] MEDS: APRESOLINE PO ×2 (08:36→08:42)
[2024-05-26] MEDS: APRESOLINE 10 MG IV (08:36)
[2024-05-26] MEDS: NORVASC 10 MG PO (08:36)
[2024-05-26] MEDS: LEXAPRO 15 MG PO (08:36)
[2024-05-26] MEDS: APRESOLINE 75 MG PO ×3 (08:44→21:42)
[2024-05-26 09:42] LABS: Blood Urea Nitrogen 47 mg/dl (9-20); Calcium 9.4 mg/dl (8.4-10.2); Carbon Dioxide 27 mmol/L (22-30); Chloride 100 mmol/L (98-107); Estimated Creatinine Clearance 43 ml/min; Glucose 102 mg/dl (70-99); Potassium 5.5 mmol/L (3.5-5.1); Sodium 141 mmol/L (135-145); eGFR 33.12
[2024-05-26 09:50] LABS: Troponin I < 0.012 ng/ml
[2024-05-26 09:51] LABS: NT-proBNP 2150 pg/ml
--- NOTE | 2024-05-26 11:20 | W.PN.HOSP.TC ---
Addendum entered and electronically signed by Tim Hernandez MD 05/27/24 10:15:
late addendum-pt was seen and examined too on 05/26/24.
General: Well Developed, Well Nourished and No Apparent Distress, Guards at bedside
HEENT: NormoCephalic, Anicteric, Moist mucous membranes, Atraumatic, No Ptosis, Nose Appears Normal and Ears Appear Normal
Respiratory: Clear and Non Labored Respirations; No Accessory Resp Muscle Use
Cardiac: S1/S2, Regular Rhythm and Bradycardia; No Murmur, Peripheral Edema or JVD
GI: Soft, Non Tender, Non Distended and Normal Bowel Sounds; No Organomegaly
Rectal: Deferred by Provider
Musculoskeletal: No Clubbing, No Cyanosis and No Edema
Skin: No Rash
Neuro: Awake, Alert, Oriented, AO x 3, No Motor Deficits and Nonfocal/grossly intact
Psych: Calm
Original Note:
Today's Communication/Plan
-
Check renal bladder ultrasound
Hold Bentyl
Bowel regimen
Bladder scan and straight cath protocol
Monitor blood pressure
May need to adjust further BP meds
Assessment / Plan
Assessment / Plan
#Hypertension urgency suspected noncompliance
#Primary hypertension
Patient with history of CKD. Patient also has bradycardia
Increase dose of hydralazine to 75mg TID
Started patient on 10 mg of Norvasc
Continue Clonidine 0.3mg TID
Hold Lisinopril 20mg as with elevated Cr/contrast exposure
Awaiting patient UDS
Alcohol level negative.
#Chest pain atypical
Troponin x 3 found to be negative.
EKG with normal sinus rhythm. Ventricular rate of 50. Sinus bradycardia. Possible J-point elevation (which was also noted on EKG from 10/18/2022).
Nitroglycerin as needed for chest pain
Avoids NSAIDs
CT angiogram was performed in ER negative for dissection aneurysm hematoma or ulcer. Negative for pulmonary embolism. No pericardial effusion.
Probnp at 2150. CXR and CT chest negative for pulmonary edema
# Elevated creatinine with CKD stage IV
#Hyperkalemia
Patient with bump in creatinine 2.3 Patient received IV contrast W/CT chest in ER
s/p Normal Saline IV fluids additional to prevent ATN/contrast nephropathy
Patient also states of decreased urinary stream
Check UA
Bladder scan and straight cath per the protocol
Check renal/bladder US
Lokelma ordered
#?IBS on bentyl
# Constipation
Hold as concern anticholinergic side effects
Start patient on bowel regimen
#Normocytic anemia
Trend hemoglobin for now
History of tobacco abuse
History of polysubstance abuse
History of ADD
Chronic opiate dependent
Continue with Subutex
DVT prophylaxis heparin subcu
Full code
Anticipated Discharge: > 48 hours
Subjective/Interval History
-
Date of Service: May 26, 2024
episode of urinary retention
states of no bm for 5-6 day s
no chest pain
on room air
Objective Data
-
Labs:
Laboratory Results
05/26/24
09:19
Sodium 141
Potassium 5.5 H
Chloride 100
Carbon Dioxide 27
BUN 47 H
Creatinine 2.3 H
Glucose 102 H
Calcium 9.4
Vital Signs:
Vital Signs
Temp Pulse Resp BP Pulse Ox
97.9 F 58 12 172/105 99
05/26/24 07:00 05/26/24 07:00 05/26/24 07:00 05/26/24 07:00 05/26/24 07:00
I&O
05/25/24 05/26/24 05/27/24
06:59 06:59 06:59
Intake Total 960 / 960
Output Total 2200 / 2200
Balance -1240 / -1240
Data Reviewed
-
Total Time Spent with Patient (in minutes): 51
[2024-05-26] MEDS: LOKELMA 10 GRAM PO (12:37)
[2024-05-26] MEDS: SENOKOT-S 1 TABLET PO (12:37)
--- NOTE | 2024-05-26 16:00 | CM ---
Spoke with [facility] nurse Leonel Pt is using a cane in shelter to ambulate since Apr 30.Guards are with pt.On his return to [facility] will will return on [facility] van with guards..
Pharmacy Curly
PCP DR Dorado
[facility]
report
[phone]
fax [phone]
PLAN Return to [facility]
[2024-05-26 18:34] LABS: Urine Albumin 1+ (Neg - Trace); Urine Bilirubin Negative (Negative); Urine Character Clear (Clear); Urine Color Yellow; Urine Glucose Negative (Negative); Urine Ketone Negative (Negative); Urine Leukocyte Negative (Negative); Urine Nitrite Negative (Negative); Urine Occult Blood Negative (Negative); Urine Specific Gravity 1.015 (<1.030); Urine Urobilinogen Negative (Neg - 1+)
[2024-05-26 18:47] LABS: Amphetamines Negative (Negative); Barbiturates Negative (Negative); Benzodiazepines Negative (Negative); Buprenorphine Positive (Negative); Cocaine Negative (Negative); Marijuana Negative (Negative); Methadone Negative (Negative); Methamphetamines Negative (Negative); Opiates Negative (Negative); Phencyclidine Negative (Negative); Tricyclic Antidepressants Positive (Negative)
[2024-05-26 19:06] LABS: Fentanyl, Urine Negative (Negative)
[2024-05-26 19:08] LABS: Urine Bacteria Few (Negative); Urine Red Blood Cell 0-2 /HPF (0-2)
[2024-05-26] MEDS: MIRALAX 17 GRAMS PO (21:42)
[2024-05-27] MEDS: HEPARIN 5000 UNITS SC ×4 (00:01→23:06)
[2024-05-27 03:11] VITALS: BP 133/83
[2024-05-27 07:39] VITALS: BP 151/82
[2024-05-27 08:48] LABS: Blood Urea Nitrogen 59 mg/dl (9-20); Calcium 8.5 mg/dl (8.4-10.2); Carbon Dioxide 25 mmol/L (22-30); Chloride 100 mmol/L (98-107); Estimated Creatinine Clearance 40 ml/min; Glucose 98 mg/dl (70-99); Potassium 5.4 mmol/L (3.5-5.1); Sodium 137 mmol/L (135-145); eGFR 29.97
[2024-05-27] MEDS: CATAPRES PO (09:20)
[2024-05-27] MEDS: NORVASC 10 MG PO (09:21)
[2024-05-27] MEDS: LEXAPRO 15 MG PO (09:21)
[2024-05-27] MEDS: SUBUTEX 16 MG SL (09:21)
[2024-05-27] MEDS: APRESOLINE 75 MG PO ×3 (09:21→21:44)
[2024-05-27] MEDS: SENOKOT-S 1 TABLET PO ×2 (09:33→21:45)
--- NOTE | 2024-05-27 10:08 | W.PN.HOSP.TC ---
Today's Communication/Plan
-
Check urine lytes
Hold ACEI
Bowel regimen
Cont w/bladder scan
Monitor BP
Assessment / Plan
Assessment / Plan
#Hypertension urgency suspected noncompliance
#Primary hypertension
Patient with history of CKD. Patient also has bradycardia
Increase dose of hydralazine to 75mg TID
Started patient on 10 mg of Norvasc
Continue Clonidine 0.3mg TID
Hold Lisinopril 20mg as with elevated Cr/contrast exposure
BP improved.
Alcohol level negative.
#Chest pain atypical
Troponin x 3 found to be negative.
EKG with normal sinus rhythm. Ventricular rate of 50. Sinus bradycardia. Possible J-point elevation (which was also noted on EKG from 10/18/2022).
Nitroglycerin as needed for chest pain
Avoids NSAIDs
CT angiogram was performed in ER negative for dissection aneurysm hematoma or ulcer. Negative for pulmonary embolism. No pericardial effusion.
Probnp at 2150. Check ECHO in morning
# Elevated creatinine with CKD stage IV
#Hyperkalemia
#BPH
Patient with bump in creatinine 2.5 Patient received IV contrast W/CT chest in ER. Bp elevated on admission.
s/p Normal Saline IV fluids additional to prevent ATN/contrast nephropathy
Patient also states of decreased urinary stream
UA benign.
Check urine lytes and eos
Bladder scan and straight cath per the protocol-not retaining
Renal/bladder US No evidence of renal collecting system dilatation bilaterally. Confirmation of bilateral ureteral jets.
#?IBS on bentyl
# Constipation
Hold as concern anticholinergic side effects
Start patient on bowel regimen
#Normocytic anemia
Trend hemoglobin for now
History of tobacco abuse
History of polysubstance abuse
History of ADD
Chronic opiate dependent
Continue with Subutex
DVT prophylaxis heparin subcu
Full code
Anticipated Discharge: > 48 hours
Subjective/Interval History
-
Date of Service: May 27, 2024
States of constipation. States has no bowel regimen past 5 to 6 days. Passing gas. Denies abdominal pain, nausea or vomiting
Denies any chest pain or shortness of breath
Objective Data
-
Labs:
Laboratory Results
05/27/24
07:36
Sodium 137
Potassium 5.4 H
Chloride 100
Carbon Dioxide 25
BUN 59 H
Creatinine 2.5 H
Glucose 98
Calcium 8.5
Vital Signs:
Vital Signs
Temp Pulse Resp BP Pulse Ox
97.6 F 58 20 151/82 98
05/27/24 07:39 05/27/24 09:20 05/27/24 07:39 05/27/24 07:39 05/27/24 07:39
I&O
05/26/24 05/27/24 05/28/24
06:59 06:59 06:59
Intake Total 960 / 960
Output Total 2200 / 2200 2150 / 2150
Balance -1240 / -1240 -2150 / -2150
Physical Exam
-
General: Well Developed and No Apparent Distress
HEENT: Normocephalic, Atraumatic and Moist Mucous Membranes
Respiratory: Clear to Auscultation
Cardiac: Regular Rhythm and S1/S2; Negative Murmur, Rub or Gallop
GI: Soft, Nontender, Nondistended and Normal Bowel Sounds; Negative Organomegaly
Rectal: Deferred by Provider
Musculoskeletal: No Clubbing, No Cyanosis and No Edema
Skin: Negative Rash
Neuro: Awake, Alert, Oriented, AO x 3, No Motor Deficits and Nonfocal/Grossly Intact
Psych: Calm
Data Reviewed
-
Total Time Spent with Patient (in minutes): 52
[2024-05-27] MEDS: TYLENOL 650 MG PO (11:18)
[2024-05-27] MEDS: CITROMA 300 ML PO (11:18)
[2024-05-27 12:04] VITALS: BP 147/88
--- NOTE | 2024-05-27 12:25 | PTCARENOTE ---
TT to at 1219:Cezar, Rm 329, Inocencio Leonardo, who came in with htn & chest pain says he feels horribe right now, chest heavy, and heart pounding, he had a headache a bit ago so I gave him tylenol, he has been drinking citroma to have a bowel
movement. BP 147/88 hr 98, we are getting an EKG now
--- NOTE | 2024-05-27 12:45 | PTCARENOTE ---
1240: EKG complete shows NSR, I held catapres at 0800 due to hr 58, HR now 97-100 bpm, he feels better, headache feels better but still some mild pressure in his chest which he says he can't describe well. I will let him rest for a bit.
[2024-05-27] MEDS: LOKELMA 10 GRAM PO (15:34)
[2024-05-27 15:35] VITALS: BP 140/84
[2024-05-27] MEDS: CATAPRES 0.3 MG PO ×2 (17:24→21:45)
[2024-05-27 18:52] LABS: Urine Sodium 86 mmol/L (30-90)
[2024-05-27 19:17] LABS: Body Fluid for Eosinophils 10% Eosinophils seen
[2024-05-27] MEDS: MIRALAX 17 GRAMS PO (21:42)
[2024-05-27] MEDS: FLOMAX 0.8 MG PO (21:45)
[2024-05-27] MEDS: PAMELOR 25 MG PO (21:45)
[2024-05-27 23:50] VITALS: BP 109/75
[2024-05-28 07:24] VITALS: BP 149/92
[2024-05-28] MEDS: SUBUTEX 16 MG SL (08:11)
[2024-05-28] MEDS: APRESOLINE 75 MG PO (08:12)
[2024-05-28] MEDS: NORVASC 10 MG PO (08:13)
[2024-05-28] MEDS: LEXAPRO 15 MG PO (08:14)
[2024-05-28] MEDS: CATAPRES 0.3 MG PO (08:14)
[2024-05-28] MEDS: HEPARIN 5000 UNITS SC ×2 (08:16→16:17)
[2024-05-28 10:07] LABS: Blood Urea Nitrogen 60 mg/dl (9-20); Calcium 9.1 mg/dl (8.4-10.2); Carbon Dioxide 26 mmol/L (22-30); Chloride 99 mmol/L (98-107); Estimated Creatinine Clearance 38 ml/min; Glucose 97 mg/dl (70-99); Potassium 5.8 mmol/L (3.5-5.1); Sodium 138 mmol/L (135-145); eGFR 28.59
--- NOTE | 2024-05-28 11:38 | W.PN.HOSP.TC ---
Today's Communication/Plan
-
see A/P
Assessment / Plan
Assessment / Plan
A/P:
# Hypertension urgency suspected noncompliance
# Primary hypertension
Patient with history of CKD. Patient also has bradycardia
Increase dose of hydralazine to 75mg TID
Started Norvasc 10 mg daily
Continue Clonidine 0.3 mg TID
Hold Lisinopril 20mg 2/2 elevated Cr/contrast exposure and hyperkalemia
BP improved.
Alcohol level negative.
# Chest pain atypical
Troponin x 3 negative.
EKG with normal sinus rhythm. Ventricular rate of 50. Sinus bradycardia. Possible J-point elevation (which was also noted on EKG from 10/18/2022).
Nitroglycerin as needed for chest pain
Avoids NSAIDs
CT angiogram was performed in ER, negative for dissection/aneurysm/hematoma or ulcer. Negative for pulmonary embolism. No pericardial effusion.
Probnp at 2150.
Check ECHO
# Elevated creatinine with CKD stage IV
# Hyperkalemia
# BPH
SCr 2.6 from baseline 2.1
Of note, patient received IV contrast from CT chest in ER.
s/p NSS IVF to prevent ATN/contrast nephropathy
Cont bladder scan given reported h/o decreased urinary stream
FENA 2.66%
Urine eosinophil 10%
Renal CS
Renal/bladder US No evidence of renal collecting system dilatation bilaterally. Confirmation of bilateral ureteral jets.
#?IBS on Bentyl
# Constipation
Hold as concern anticholinergic side effects
Started bowel regimen
# Normocytic anemia
Trend hemoglobin for now
# History of tobacco abuse
# History of polysubstance abuse
# History of ADD
# Chronic opiate dependent
# Continue with Subutex
DVT prophylaxis heparin subcu
Full code
Anticipated Discharge: 24 - 48 hours
Subjective/Interval History
-
Date of Service: May 28, 2024
Objective Data
-
Labs:
Laboratory Results
05/28/24
08:23
Sodium 138
Potassium 5.8 H
Chloride 99
Carbon Dioxide 26
BUN 60 H
Creatinine 2.6 H
Glucose 97
Calcium 9.1
Vital Signs:
Vital Signs
Temp Pulse Resp BP Pulse Ox
36.6 C 68 18 149/92 98
05/28/24 07:24 05/28/24 07:24 05/28/24 07:24 05/28/24 07:24 05/28/24 07:24
I&O
05/27/24 05/28/24 05/29/24
06:59 06:59 06:59
Intake Total 960 / 960
Output Total 2150 / 2150
Balance -2150 / -2150 960 / 960
Review of Systems
-
All other systems: Reviewed and negative
Physical Exam
-
General: Well Developed, Well Nourished, No Apparent Distress and Comfortable
HEENT: Normocephalic, Atraumatic and Moist Mucous Membranes
Respiratory: Clear to Auscultation
Cardiac: Regular Rhythm and S1/S2
GI: Soft, Nontender, Nondistended and Normal Bowel Sounds; Negative Organomegaly
Rectal: Deferred by Provider
Musculoskeletal: No Clubbing, No Cyanosis and No Edema
Skin: Negative Rash
Neuro: Awake and Alert
Psych: Calm and Intact Judgement/Insight
Data Reviewed
-
Labs: Labs Reviewed by me
--- NOTE | 2024-05-28 14:05 | W.CON.NEPH ---
Consultation
-
Date/Time Consultation Requested: 05/28/2024 12pm
Date/Time Consultation Performed: 05/20/2024 2 PM
Requesting Provider: Dr. Ybarra
Performing Provider: Dr. Capone
Reason for Consultation: AMOS, hyperkalemia
Medical History
-
Chief Complaint: Chest discomfort
History of Present Illness:
This is a 54-year-old gentleman sent in from the [facility]. He is a 54-year-old gentleman with chronic kidney disease stage IV with baseline creatinine approximately 2.1. He has hypertension on a multidrug regimen which she has had for 2 years time.
He has BPH on Flomax therapy. He was sent in from the intermediate because of chest discomfort. He initially received nitroglycerin without benefit. He then underwent CT angiogram with IV contrast to rule out pulmonary embolism which was not found. He
also received a dose of Toradol. His pain has improved since admission. He was also noted to have hypertensive urgency with a blood pressure greater than 200 systolic at the time of admission. While here his creatinine has slowly risen up to 2.6
with development of hyperkalemia. His blood pressures have improved on a multidrug regimen.
He says that he has been on these drugs for some time but says that he only takes the clonidine on a daily basis at nighttime.
Past Medical History
Hypertension, CKD 4, ankle surgery
Social History
Tobacco: Former Smoker
Alcohol: Former
Family History
Family History: Not Pertinent
Allergies / Home Medications
Allergy/AdvReac Type Severity Reaction Status Date / Time
No Known Allergies Allergy Verified 05/25/24 09:30
�Medication �Instructions �Recorded �Confirmed �Type
acetaminophen 325 mg tablet 650 mg PO BIDPRN PRN mild pain 05/25/24 05/25/24 History
buprenorphine HCl 8 mg sublingual 16 mg sublingual DAILY opioid 05/25/24 05/25/24 History
tablet withdrawal
clonidine HCl 0.3 mg tablet 0.3 mg PO TID Blood Pressure 05/25/24 05/25/24 History
dicyclomine 10 mg capsule 10 mg PO TID Gastrointestinal Issue 05/25/24 05/25/24 History
docusate sodium 100 mg capsule 100 mg PO BIDPRN PRN constipation 05/25/24 05/25/24 History
escitalopram oxalate 10 mg tablet 15 mg PO DAILY Depression 05/25/24 05/25/24 History
hydralazine 25 mg tablet 25 mg PO DAILY anxiety 05/25/24 05/25/24 History
lisinopril 20 mg tablet 20 mg PO DAILY Blood Pressure 05/25/24 05/25/24 History
nortriptyline 25 mg capsule 25 mg PO HS Depression 05/25/24 05/25/24 History
tamsulosin 0.4 mg capsule 0.8 mg PO HS Urinary Issue 05/25/24 05/25/24 History
Review of Systems
-
No current chest pain or shortness of breath
All other systems: Negative unless noted
Physical Exam
Vital Signs
Vital Signs
Temp Pulse Resp BP Pulse Ox
98 F 68 18 149/92 98
05/28/24 07:24 05/28/24 07:24 05/28/24 07:24 05/28/24 07:24 05/28/24 07:24
Lab Results
WBC 7.4 10^3/uL (4.8-10.8) 05/25/24 10:07
RBC 3.57 10^6/uL (4.70-6.10) L 05/25/24 10:07
Hgb 10.2 g/dL (13.0-18.0) L 05/25/24 10:07
Hct 31.1 % (39.0-52.0) L 05/25/24 10:07
Plt Count 157 10^3/uL (130-400) 05/25/24 10:07
Sodium 138 mmol/L (135-145) 05/28/24 08:23
Potassium 5.8 mmol/L (3.5-5.1) H 05/28/24 08:23
Chloride 99 mmol/L (98-107) 05/28/24 08:23
Carbon Dioxide 26 mmol/L (22-30) 05/28/24 08:23
BUN 60 mg/dl (9-20) H 05/28/24 08:23
Creatinine 2.6 mg/dL (0.7-1.3) H 05/28/24 08:23
eGFR 28.59 05/28/24 08:23
Glucose 97 mg/dl (70-99) 05/28/24 08:23
Calcium 9.1 mg/dl (8.4-10.2) 05/28/24 08:23
Ech-H-Nmpydxymeeg Pept 2150 pg/ml 05/26/24 09:19
Albumin 3.9 g/dl (3.5-5.0) 05/25/24 10:07
Renal ultrasound on 05/26/2024
IMPRESSION: No evidence of renal collecting system dilatation bilaterally. Confirmation of bilateral ureteral jets.
No focal urinary bladder abnormality. Patient could not void spontaneously and, therefore, urinary bladder postvoid residual could not be calculated.
s
Small simple left renal cysts.
Spleen at least top normal in size, calculated volume [address] on 05/25/2024
IMPRESSION:
1. Mild mediastinal and bilateral hilar lymphadenopathy.
2. Mild dependent subsegmental atelectasis and scarring in the lower lobes of both lungs.
3. Mild to moderate bilateral renal cortical volume loss and large number of small bilateral renal cysts (either acquired cystic disease or autosomal recessive polycystic kidney disease).
4. 1.1 cm arterial enhancing lesion in the right lobe of the liver. Diagnostic possibilities are (1) a small peripheral vascular shunting or (2) a small hepatic tumor.
5. Moderate multilevel vertebral body discogenic degenerative disease with endplate Schmorl nodes throughout the mid and lower thoracic spine
Physical Exam
Patient is awake alert oriented and in no distress. Mood and affect were pleasant, insight and judgment were good. Pupils are equal round and reactive to light, extraocular movements are intact, sclera were anicteric. Hearing was normal, ears and
nose are intact. Oropharynx was clear. Neck was supple with trachea midline and no thyromegaly. Heart was regular rate and rhythm without rubs. Lower extremities without edema. Lungs were clear to auscultation bilaterally and with normal
excursion. Abdomen was soft, nontender, with normal active bowel sounds, and no hepatosplenomegaly. Skin was without rash and with normal turgor.
Data Reviewed
-
CT Scan: Report Reviewed by me
Ultrasound: Report Reviewed by me
Medical Tests (Nuc Med, Echo etc): Image Personally Visualized and interpreted (EKG on 05/27/2024 by reading shows normal sinus rhythm) and Report Reviewed by me (Echocardiogram on 05/28/2024 shows ejection fraction 60%, normal function)
Labs: Labs Reviewed by me
Assessment/Plan
-
Assessment
Hypertensive urgency
AMOS
CKD 4, baseline 2.1
Hyperkalemia
Chest pain
Plan
AMOS likely due to NSAIDs with contrast in setting of CKD 4
Urine was fairly bland with the exception of 1+ albumin
Follow BMP
No further NSAIDs or contrast IV
Is unlikely that he will be tolerant or compliant with 3 times daily dosing of clonidine.
Will switch to nifedipine 30 mg twice daily
Wean clonidine
Reduce hydralazine to 100 mg twice daily
[2024-05-28 15:22] VITALS: BP 119/70
[2024-05-28] MEDS: PROCARDIA XL (EXTENDED RELEASE) 30 MG PO (20:40)
[2024-05-28] MEDS: FLOMAX 0.8 MG PO (20:41)
[2024-05-28] MEDS: CATAPRES 0.1 MG PO (20:41)
[2024-05-28] MEDS: PAMELOR 25 MG PO (20:41)
[2024-05-28] MEDS: APRESOLINE 100 MG PO (20:41)
[2024-05-28] MEDS: MIRALAX 17 GRAMS PO (20:42)
[2024-05-28 23:50] VITALS: BP 129/86
[2024-05-29] MEDS: HEPARIN 5000 UNITS SC ×2 (00:30→08:10)
[2024-05-29 07:20] VITALS: BP 120/83
[2024-05-29] MEDS: APRESOLINE 100 MG PO (08:08)
[2024-05-29] MEDS: LEXAPRO 15 MG PO (08:09)
[2024-05-29] MEDS: SUBUTEX 16 MG SL (08:09)
[2024-05-29] MEDS: PROCARDIA XL (EXTENDED RELEASE) 30 MG PO (08:09)
[2024-05-29] MEDS: CATAPRES 0.1 MG PO (08:10)
[2024-05-29 08:57] LABS: Blood Urea Nitrogen 62 mg/dl (9-20); Calcium 9.2 mg/dl (8.4-10.2); Carbon Dioxide 24 mmol/L (22-30); Chloride 100 mmol/L (98-107); Estimated Creatinine Clearance 38 ml/min; Glucose 109 mg/dl (70-99); Magnesium 2.4 mg/dl (1.6-2.3); Potassium 5.4 mmol/L (3.5-5.1); Sodium 137 mmol/L (135-145); eGFR 28.59
--- NOTE | 2024-05-29 10:45 | W.PN.HOSP.TC ---
Addendum entered and electronically signed by Olivia Ybarra MD 05/29/24 12:58:
total DC time 36 min
Original Note:
Today's Communication/Plan
-
see AP
Assessment / Plan
Assessment / Plan
A/P:
# Hypertension urgency suspected noncompliance
# Primary hypertension
Patient with history of CKD. Patient also has bradycardia
Adjusted hydralazine to 100 mg BID
Changed Clonidine to 0.1 mg BID
added nifedipine 30 mg BID
Off Norvasc,
Off Lisinopril
BP improved.
Alcohol level negative.
# Chest pain atypical
Troponin x 3 negative.
EKG with normal sinus rhythm. Ventricular rate of 50. Sinus bradycardia. Possible J-point elevation (which was also noted on EKG from 10/18/2022).
Nitroglycerin as needed for chest pain
Avoids NSAIDs
CT angiogram was performed in ER, negative for dissection/aneurysm/hematoma or ulcer. Negative for pulmonary embolism. No pericardial effusion.
Probnp at 2150.
ECHO unrevealing: Normal biventricular size and systolic function without regional wall motion abnormality. Estimated LVEF 60-65%. No significant valve disease.
# Elevated creatinine with CKD stage IV
# Hyperkalemia
# BPH
SCr 2.6 from baseline 2.1
Of note, patient received IV contrast from CT chest in ER.
s/p NSS IVF to prevent ATN/contrast nephropathy
Cont bladder scan given reported h/o decreased urinary stream
FENA 2.66%
Urine eosinophil 10%
Renal/bladder US No evidence of renal collecting system dilatation bilaterally. Confirmation of bilateral ureteral jets.
Renal on board
#?IBS on Bentyl
# Constipation
Hold as concern anticholinergic side effects
Started bowel regimen
# Normocytic anemia
Trend hemoglobin for now
# History of tobacco abuse
# History of polysubstance abuse
# History of ADD
# Chronic opiate dependent
# Continue with Subutex
DVT prophylaxis heparin subcu
Full code
DW renal, OK for DC
Anticipated Discharge: Today
Subjective/Interval History
-
Date of Service: May 29, 2024
Objective Data
-
Labs:
Laboratory Results
05/29/24
06:53
Sodium 137
Potassium 5.4 H
Chloride 100
Carbon Dioxide 24
BUN 62 H
Creatinine 2.6 H
Glucose 109 H
Calcium 9.2
Vital Signs:
Vital Signs
Temp Pulse Resp BP Pulse Ox
36.8 C 95 16 120/83 98
05/29/24 07:20 05/29/24 07:20 05/29/24 07:20 05/29/24 07:20 05/29/24 07:20
I&O
05/28/24 05/29/24 05/30/24
06:59 06:59 06:59
Intake Total 960 / 960 960 / 960
Output Total 2650 / 2650
Balance 960 / 960 -1690 / -1690
Review of Systems
-
All other systems: Reviewed and negative
Physical Exam
-
General: Well Developed, Well Nourished, No Apparent Distress, Comfortable and Conversant
HEENT: Normocephalic, Atraumatic and Moist Mucous Membranes
Respiratory: Clear to Auscultation
Cardiac: Regular Rhythm and S1/S2
GI: Soft, Nontender, Nondistended and Normal Bowel Sounds; Negative Organomegaly
Rectal: Deferred by Provider
Musculoskeletal: No Clubbing, No Cyanosis and No Edema
Skin: Negative Rash
Neuro: Awake and Alert
Psych: Calm and Intact Judgement/Insight
Data Reviewed
-
Medical Tests (Nuc Med, Echo etc): Report Reviewed by me (echo)
Labs: Labs Reviewed by me
--- NOTE | 2024-05-29 11:12 | CM ---
Patient from [facility]. CM called to [facility] and spoke with Elicia. Please call report to [phone]/fax [phone]. CM will continue to follow for discharge planning needs.
Plan; discharge/return to [facility]
[2024-05-29 11:15] VITALS: BP 122/68
[2024-05-29] MEDS: DULCOLAX 10 MG RECTAL (12:00)
--- NOTE | 2024-05-29 12:45 | W.DCSUMMARY ---
Discharge Summary
Discharge Data
Date of Admission: 05/25/24
Date of Discharge: 05/29/24
-
Pending Results: No
Hospital Course
Principal Diagnosis:
Hypertension urgency suspect due to noncompliance
Elevated creatinine and mild hyperkalemia in setting of chronic kidney disease (CKD) stage IV
Chronic Diagnoses:�
Normocytic anemia
History of tobacco abuse
History of polysubstance abuse
History of ADD
Chronic opiate dependent
Continue with Subutex
Irritable bowel syndrome on Bentyl
Benign prostate hypertrophy
Consultations:�
Nephrology
Procedures:�
None
Clinical course:�
This is A 54-year-old male with past medical history as stated above, who was [facility] in [facility] for chest discomfort and hypertension urgency.
Problem 1:
Hypertension urgency suspect due to noncompliance.
He is antihypertensive were adjusted during this hospital stay.
He was discharged with:
hydralazine to 100 mg BID
Clonidine to 0.1 mg BID
Nifedipine (new) 30 mg BID
He was taken off Norvasc and lisinopril. His blood pressure was stable on these medications.
Problem 2:
Chest pain atypical.
His Troponin were negative x3.
His EKG was unrevealing: normal sinus rhythm, sinus bradycardia.
His CT angiogram performed in ER was negative for dissection/aneurysm/hematoma or ulcer, also negative for pulmonary embolism and no pericardial effusion.
His ECHO was also unrevealing: Normal biventricular size and systolic function without regional wall motion abnormality. Estimated LVEF 60-65%. No significant valve disease.
His chest pain resolved uneventfully.
Problem 3:
Elevated creatinine with CKD stage IV
His serum creatinine was stable at 2.6 this admission, from baseline of 2.1.
Of note, the patient did receive IV contrast from CT chest in the ER followed by NSS IVF to prevent ATN/contrast nephropathy.
His Renal/bladder US showed no evidence of renal collecting system dilatation bilaterally.
He can check BMP outpatient with result to his PCP.
As for the rest of his medical problems, they were stable during his hospital stay.
Discharge Plan
-
Patient Disposition: Senior Care
Discharge Diagnosis/Procedures: Hypertension urgency suspected noncompliance;
CKD stage IV;
Hyperkalemia
Condition: Fair
Diet: As tolerated, Low Fat, Low Cholesterol and Low Sodium
Activity: As tolerated
Driving Restrictions: As prior to admission
Blood Work: BMP in 1 week, result to PCP
Referrals:
[facility] [Family Provider] - in less than 1 week
Additional Discharge Medication Instructions: Take hydralazine to 100 mg twice daily
Take Clonidine to 0.1 mg twice daily
We have added Nifedipine 30 mg twice daily
Discontinue Norvasc and Lisinopril
Prescriptions:
New
clonidine HCl 0.1 mg Tablet
0.1 mg PO BID Qty: 60 0RF
hydralazine 50 mg Tablet
100 mg PO BID Qty: 60 0RF
nifedipine 30 mg Tablet Extended Release
30 mg PO BID Qty: 60 0RF
Continued
acetaminophen 325 mg Tablet
650 mg PO BIDPRN PRN (Reason: mild pain)
nortriptyline 25 mg Capsule
25 mg PO HS
tamsulosin 0.4 mg Capsule
0.8 mg PO HS
docusate sodium 100 mg Capsule
100 mg PO BIDPRN PRN (Reason: constipation)
escitalopram oxalate 10 mg Tablet
15 mg PO DAILY
buprenorphine HCl 8 mg Tablet, Sublingual
16 mg SUBLINGUAL DAILY
Discontinued
lisinopril 20 mg Tablet
20 mg PO DAILY
clonidine HCl 0.3 mg Tablet
0.3 mg PO TID
hydralazine 25 mg Tablet
25 mg PO DAILY
dicyclomine 10 mg Capsule
10 mg PO TID
Discharge Orders:
Discharge Patient (As Directed); Ordered 05/29/24
Ordered By: Olivia Ybarra
Discharge Date and Time
Print Language: SYRIAC
== END 2024-05-29 12:59 | DRG 305 ==
LOC: 3 WEST ACU 18:43
PROVIDERS: Physician Assistant; ADMITTING PHYSICIAN Hospitalist; ATTENDING PHYSICIAN Internal Medicine; CONSULT PHYSICIAN Specialist; EMERGENCY PHYSICIAN Emergency Medicine
DX: I16.0 Hypertensive urgency (principal); N18.4 Chronic kidney disease, stage 4 (severe); N17.9 Acute kidney failure, unspecified; J98.11 Atelectasis; F11.20 Opioid dependence, uncomplicated; D63.1 Anemia in chronic kidney disease; I12.9 Hypertensive chronic kidney disease with stage 1 through stage 4 chronic kidney disease, or unspecified chronic kidney disease; F32.A Depression, unspecified; K58.9 Irritable bowel syndrome, unspecified; F41.9 Anxiety disorder, unspecified; E87.5 Hyperkalemia; F17.200 Nicotine dependence, unspecified, uncomplicated; G89.4 Chronic pain syndrome; N40.0 Benign prostatic hyperplasia without lower urinary tract symptoms; N28.1 Cyst of kidney, acquired; R59.0 Localized enlarged lymph nodes; Z79.899 Other long term (current) drug therapy
CPT/HCPCS: 71046; 71275; 76770; 80048; 80053; 80306; 80307; 81003; 81015; 81099; 82077; 82570; 83735; 83880; 84300; 84484; 85025; 87070; 93005; 93306; 96361; 96374; 96375; 99285; Q9967

== ENCOUNTER 2024-06-13 11:18 | Inpatient (IN) | payer OTHER, SELFPAY ==
[2024-06-12 21:02] VITALS: BP 194/136
[2024-06-12 21:04] VITALS: BP 194/136
[2024-06-12 21:06] LABS: Glucose - Point of Care 108 mg/dl (70-99)
[2024-06-12 21:16] VITALS: BMI 27.1
[2024-06-12 21:17] VITALS: BP 203/116
[2024-06-12 21:19] LABS: % Basophils 0.5 % (0-2); % Eosinophils 6.3 % (0-6); % Immature Granulocytes 0.2 % (0-0.5); % Lymphocytes 17.7 % (20.5-51.1); % Monocytes 9.3 % (1.7-9.3); Absolute Eosinophils 0.4 10^3/uL (0-0.7); Absolute Lymphocytes 1.1 10^3/uL (1.2-3.4); Absolute Monocytes 0.6 10^3/uL (0.1-0.6); Hematocrit 29.7 % (39.0-52.0); Hemoglobin 9.8 g/dL (13.0-18.0); Mean Corpuscular Hgb 28.1 pg (27.0-31.0); Mean Corpuscular Volume 85.1 fL (80.0-94.0); Mean Platelet Volume 9.2 fL (7.4-10.4); Nucleated Red Blood Cells % 0 % (-); Platelet Count 227 10^3/uL (130-400); Red Blood Cell Count 3.49 10^6/uL (4.70-6.10); Red Cell Dist. Width 13.8 % (11.5-14.5)
--- NOTE | 2024-06-12 21:22 | ED.GENMED ---
History of Present Illness
General
Chief Complaint: Blood Pressure Problem
Source: patient
Exam Limitations: none
Time Seen by Provider: 06/12/24 21:07
History of Present Illness
History of Present Illness:
This is a 54 year old male that is brought in by ambulance from the Care Home. State that he is feeling dizzy. States that about 1 hour ago he just started to feel weird. States that he had some chest discomfort, SOB, headache and lightheadedness.
State that his chest pain is better. States that he also has a headache that is just pounding. Denies any fever, chills, abd pain, nausea, vomiting, diarrhea, urinary burning.
Past History
Past History
ED Past Medical History: HTN, Renal failure (Renal insufficiency), Psychiatric (ADD) and Other (Chronic pain syndrome/chronic left ankle pain-maintained on methadone, ADHD); Negative CAD
ED Past Surgical History: Orthopedic (Several left ankle surgical procedures)
Social History
Tobacco: Former smoker
Alcohol: Occasional (Rare alcohol use)
Drug: Marijuana
Personal:
Living: snf
Family History
Family History: Hypertension
Review of Systems
Review of Systems
All Other Systems: ROS reviewed and negative except as documented in HPI and ROS
Constitutional: Reports no symptoms; Denies fever or chills
EENT: Reports no symptoms
Respiratory: Reports trouble breathing; Denies cough
ABD/GI: Reports no symptoms; Denies abdominal pain, nausea, vomiting or diarrhea
: Reports no symptoms; Denies dysuria, frequency or urgency
Musculoskeletal: Reports no symptoms
Skin: Reports no symptoms
Neurological: Reports headache and other (Lightheaded)
Psychiatric: Reports no symptoms
Phy Exam
General Physical Exam
General Presentation: no apparent distress
General age: appears stated age
General Skin: warm and dry
General Habitus: normal
General Mental: alert
General Hydration: dry mucous membranes
ENT Exam
ENT Exam: TM's normal, pharynx normal and neck supple
Eye Exam
Eye Exam: EOMI
Cardiovascular Exam
Cardiovascular Exam: regular rate/rhythm, no edema, no murmur and normal peripheral pulses
Pulmonary Exam
Pulmonary Exam: lungs clear, no respiratory distress, no rales, chest non tender, no crackles, no rhonchi, no wheezing and no cough
Gastrointestinal Exam
Gastrointestinal Exam: normal bowel sounds, non tender, soft, no organomegaly, no pulsatile mass and non distended
Musculoskeletal Exam
Musculoskeletal Exam: full ROM and edema (Left lower leg swelling noted +1 )
Skin Exam
Skin Exam: normal color, warm/dry, no rash and no petechia
Psychiatric Exam
Psychiatric Exam: normal mood/affect
Course
Orders/Labs/Results
Orders:
Orders
06/12/24 21:07
EKG [Electrocardiogram (*1)] Urgent
Reason for Study: Hypertension, Benign
06/12/24 21:08
EKG- Treatment ONCE
06/12/24 21:10
Complete Blood Count/With Diff Urgent
Comprehensive Metabolic Panel Urgent
06/12/24 21:19
Electrocardiogram (*1) Urgent
Reason for Study: Chest Pain
CT Head W/o Iv Contrast Urgent
Comment:
Reason For Exam: Headache
EKG- Treatment ONCE
06/12/24 21:21
HydrALAZINE [Apresoline] 5 mg IV NOW STA
06/12/24 21:23
Troponin I Urgent
06/12/24 21:29
Acetaminophen 1000MG/100Ml [Ofirmev] 1,000 mg in 100 ml IV ONCE
Acetaminophen IV Indication:: ED Narcotic Naive Pt-ONCE
06/12/24 22:39
HydrALAZINE [Apresoline] 10 mg IV NOW STA
06/12/24 23:23
Fentanyl, Urine Urgent
Urine Drug Abuse Screen Urgent
Date Specimen was Collected: 06/12/24
Time Specimen was Collected: 22:13
06/13/24 00:02
Clonidine [Catapres] 0.1 mg PO NOW STA
06/13/24 01:01
Metoprolol [Lopressor] 5 mg IV NOW STA
06/13/24 01:02
Amoxicillin 875 mg/Clav 125 mg [Augmentin 875 mg/125 mg] 1 tablet PO NOW STA
Abnormal Lab Results
06/12/24 06/12/24 06/12/24
21:05 21:10 23:23
RBC 3.49 L 10^6/uL
(4.70-6.10)
Hgb 9.8 L g/dL
(13.0-18.0)
Hct 29.7 L %
(39.0-52.0)
Absolute Lymphs (auto) 1.1 L 10^3/uL
(1.2-3.4)
Lymphocytes % 17.7 L %
(20.5-51.1)
Eosinophils % 6.3 H %
(0-6)
Potassium 5.2 H mmol/L
(3.5-5.1)
BUN 50 H mg/dl
(9-20)
Creatinine 2.4 H mg/dL
(0.7-1.3)
Glucose 107 H mg/dl
(70-99)
Ur Buprenorphine Positive H
(Negative)
POC Glucose 108 H mg/dl
(70-99)
06/12/24 21:10
06/12/24 21:10
H/H low but consistent with prior labs. Chronic renal insufficiency (improved a little from prior labs) Glucose nonfasting. Troponin <0.012, Urine positive or buprenorphine. negative for Fentanyl
Vital Signs
Initial and Last Documented VS:
Initial Vital Signs
Temp Pulse Resp BP Pulse Ox
98.0 F 87 10 194/136 98
06/12/24 21:02 06/12/24 21:02 06/12/24 21:02 06/12/24 21:02 06/12/24 21:02
Last Documented Vital Signs
Temp Pulse Resp BP Pulse Ox
98.0 F 89 6 188/117 99
06/12/24 21:02 06/13/24 00:11 06/13/24 00:00 06/13/24 00:11 06/13/24 00:00
MDM/Problems Addressed
Differential Diagnosis Includes:
Hypertension, Headaches
MDM/Problems Addressed:
This is 54 year old male that is brought in from the snf with c/o this weird feeling and a headache. States that this started about 1 hour ago.
Will check CT head, Labs, Medicate for Hypertension.
Back into see patient. Explained that his CT shows that he has Sinusitis. Will treat patient with antibiotics for his. However, Patient remains Hypertensive. Will give Clonidine at this time and if unable to get patient BP down will need to admit.
Unable to get patient BP down Continued with a BP os 188/117. Will give Lopressor IV now and admit. Will also give Augmentin for patient Sinusitis noted on the CT of his head. Hospitalist notified.
Chronic conditions affecting care: HTN
Acute Exacerbation and/or Progression of Chronic Illness: HTN
*Radiology
Radiology exam reviewed: radiology read reviewed (CT head-Severe mucosal diseaes throughout the ethmoid air cells. Mild acute left sphenoid sinusitis. mild diffuse cerebral and cerebellar volume loss. Mild periventricular white matter leukoaraiosis.
)
*Pulse Oximetry
Patient hypoxic: no
*EKG
Interpreted by ED Provider?: Yes
Heart Rate: 82
Rate: normal
Rhythm: sinus
[place]: normal axis
Interval: normal interval
QRS Pattern: normal QRS
Ischemia: no ischemia
*[employer] Interpretation
Rate: normal
Heart Rate: 88
Rhythm: sinus
*Critical Care Note
Total Time (30-74mins, 75-104mins- exclusive of procedures): Not Applicable
ED Attending Note
-
Portions of this chart may have been created with voice recognition software.� Occasional wrong word or��sound alike� substitutions may have occurred due to the inherent limitations of voice recognition software.
Discharge Plan
Departure
Patient Disposition: Admit
Date of Disposition: 06/13/24
Time of Disposition: 01:07
Admit to: Telemetry
Presentation/result/management discussed w/ accepting MD/DO: Hospitalist
Patient with high blood pressure during this ER visit?: Yes
Condition: Good
Covid-19: Not Applicable
Discharge Problem:
Hypertensive urgency, Sinusitis, acute
Prescriptions:
No Action
acetaminophen 325 mg Tablet
650 mg PO BIDPRN PRN (Reason: mild pain)
nortriptyline 25 mg Capsule
25 mg PO HS
tamsulosin 0.4 mg Capsule
0.8 mg PO HS
docusate sodium 100 mg Capsule
100 mg PO BIDPRN PRN (Reason: constipation)
escitalopram oxalate 10 mg Tablet
15 mg PO DAILY
buprenorphine HCl 8 mg Tablet, Sublingual
16 mg SUBLINGUAL DAILY
clonidine HCl 0.1 mg Tablet
0.1 mg PO BID Qty: 60 0RF
hydralazine 50 mg Tablet
100 mg PO BID Qty: 60 0RF
nifedipine 30 mg Tablet Extended Release
30 mg PO BID Qty: 60 0RF
Referrals:
[facility] [Family Provider] -
Interventions
Interventions:
*Risk Screen - Suicide Last Done: 06/12/24 21:18
*General Assessment Last Done: 06/12/24 21:18
*Neglect/Abuse Screening Last Done: 06/12/24 21:18
ED- Fall Risk Assessment Last Done: 06/12/24 21:18
*ED COVID-19 Vaccine History Last Done: 06/12/24 21:18
ED- Cardiac Assessment Last Done: 06/12/24 21:18
ED- Neurological Assessment Last Done: 06/12/24 21:18
ED- Pulmonary Assessment Last Done: 06/12/24 21:18
Discharge Date and Time
Print Language: TAJIK
[2024-06-12] MEDS: APRESOLINE 5 MG IV (21:25)
[2024-06-12 21:28] LABS: ALT (SGPT) 22 U/L (0-50); AST (SGOT) 29 U/L (17-59); Albumin 4.6 g/dl (3.5-5.0); Alkaline Phosphatase 71 U/L (38-126); Blood Urea Nitrogen 50 mg/dl (9-20); Calcium 9.1 mg/dl (8.4-10.2); Carbon Dioxide 25 mmol/L (22-30); Chloride 103 mmol/L (98-107); Estimated Creatinine Clearance 41 ml/min; Glucose 107 mg/dl (70-99); Potassium 5.2 mmol/L (3.5-5.1); Sodium 140 mmol/L (135-145); Total Bilirubin 0.2 mg/dl (0.2-1.3); Total Protein 7.8 g/dl (6.3-8.2); eGFR 31.47
[2024-06-12] MEDS: OFIRMEV 100 IV (21:38)
[2024-06-12 21:54] LABS: Troponin I < 0.012 ng/ml
[2024-06-12 22:00] VITALS: BP 173/110
[2024-06-12] MEDS: APRESOLINE 10 MG IV (22:46)
[2024-06-12 23:00] VITALS: BP 203/119
[2024-06-12 23:27] VITALS: BP 193/114
[2024-06-13] VITALS (13 sets, daily range): BP systolic 154–210; BP diastolic 95–124; BMI 26.5
[2024-06-13] MEDS: CATAPRES 0.1 MG PO ×3 (00:11→19:45)
[2024-06-13 00:17] LABS: Amphetamines Negative (Negative); Barbiturates Negative (Negative); Benzodiazepines Negative (Negative); Buprenorphine Positive (Negative); Cocaine Negative (Negative); Marijuana Negative (Negative); Methadone Negative (Negative); Methamphetamines Negative (Negative); Opiates Negative (Negative); Phencyclidine Negative (Negative); Tricyclic Antidepressants Negative (Negative)
[2024-06-13 00:26] LABS: Fentanyl, Urine Negative (Negative)
[2024-06-13] MEDS: AUGMENTIN 875 MG/125 MG 1 TABLET PO (01:09)
[2024-06-13] MEDS: LOPRESSOR 5 MG IV (01:09)
--- NOTE | 2024-06-13 01:25 | HPS.HSE ---
Family Physician
-
Family Physician: Facility [facility]
Chief Complaint
-
Uncontrolled hypertension
History of Present Illness
This is a 54-year-old male with history of CKD, uncontrolled hypertension, opioid dependence and BPH who presents to the emergency department from incarceration on weight complains of uncontrolled hypertension.
Patient specifically reported that this evening he was feeling dizzy and had a headache. He did not have any fevers or chills. No nausea. No vomiting. Reported some mild chest discomfort. He denies shortness of breath, dyspnea on exertion,
lower extremity edema orthopnea or PND. He denies any blurry vision or double vision. There is no numbness or tingling. He has no focal weakness. He endorses compliance with his medications.
Patient was admitted about 2 weeks ago with hypertensive urgency and chest pain at that time. This was thought to be secondary to medication noncompliance. He a had adjustment of his blood pressure regimen with discontinuation of Norvasc and
lisinopril, addition of nifedipine, statin hydralazine/increase hydralazine to 100 mg twice daily and clonidine reduced to 0.1 mg twice daily. At the time of discharge his blood pressures were in the normal range and patient was asymptomatic. He
had known CKD and did receive contrast during that admission. His renal function at time of discharge was stable.
In the ED today the patient was afebrile, blood pressure was mostly in the 200s over 100 systolic with a large blood pressure of 180/120. ECG showed normal sinus rhythm without any acute ST or T wave changes. Troponin was negative. CBC was
unremarkable. He had a potassium of 5.2. His creatinine was 2.4 and his BUN was 20. He had multiple treatments for his blood pressure in the ED but it remained persistently elevated.
Medical History
Past Medical History
Past Medical History: Reports HTN
Additional Past Medical History:
CKD stage IV
BPH
Opioid dependence
Past Surgical History: Reports None
Social History
Tobacco: Non-smoker
Alcohol: None
Drug: Former User
Personal: Single
Living: Half-Way
Family History
Family History: Not pertinent
Allergies / Home Medications
Allergies reflects when Allergies were last updated in [facility].
Home Medications with original date entered in [facility] [employer] [facility]
Allergy/Medication List:
Allergies
Allergy/AdvReac Type Severity Reaction Status Date / Time
No Known Allergies Allergy Verified 06/13/24 01:07
Home Medications
acetaminophen 325 mg tablet 650 mg PO BIDPRN PRN mild pain 05/25/24
buprenorphine HCl 8 mg sublingual tablet 16 mg sublingual DAILY opioid withdrawal 05/25/24
docusate sodium 100 mg capsule 100 mg PO BIDPRN PRN constipation 05/25/24
escitalopram oxalate 10 mg tablet 15 mg PO DAILY Depression 05/25/24
nortriptyline 25 mg capsule 25 mg PO HS Depression 05/25/24
tamsulosin 0.4 mg capsule 0.8 mg PO HS Urinary Issue 05/25/24
clonidine HCl 0.1 mg tablet 0.1 mg PO BID #60 tabs 05/29/24
hydralazine 50 mg tablet 100 mg (2 x 50 mg) PO BID #60 tabs 05/29/24
nifedipine 30 mg tablet,extended release 30 mg PO BID #60 tabs 05/29/24
Review of Systems
-
History Source: Patient
Constitutional: Reports No Symptoms
EENT: Reports No Symptoms
Respiratory: Reports No Symptoms
Cardiac: Reports No Symptoms
Abdomen/GI: Reports No Symptoms
: Reports No Symptoms
Musculoskeletal: Reports No Symptoms
Skin: Reports No Symptoms
Neurological: Reports Dizzy and Headache
Endocrine: Reports No Symptoms
Hematologic/Lymphatic: Reports No Symptoms
Psych: Reports No Symptoms
Physical Exam
Vital Signs
Vital Signs
Temp Pulse Resp BP Pulse Ox
98.0 F 77 13 179/122 98
06/12/24 21:02 06/13/24 01:09 06/13/24 01:00 06/13/24 01:09 06/13/24 01:00
Physical Exam
General: Well Developed, Well Nourished, No Apparent Distress and Comfortable
HEENT: NormoCephalic, Anicteric, Moist mucous membranes and Atraumatic
Respiratory: Clear
Cardiac: S1/S2 and Regular Rhythm
Breast: Deferred by me
GI: Soft, Non Tender, Non Distended and Normal Bowel Sounds
Rectal: Deferred by Provider
Genito-urinary: Deferred by me
Musculoskeletal: No Clubbing, No Cyanosis and No Edema
Skin: Warm
Neuro: AO x 3
Hematologic/Lymphatic: No Lymphadenopathy
Psych: Calm
Laboratory Results
-
06/12/24 21:10
06/12/24 21:10
Laboratory Results
Total Bilirubin 0.2 mg/dl (0.2-1.3) 06/12/24 21:10
AST 29 U/L (17-59) 06/12/24 21:10
ALT 22 U/L (0-50) 06/12/24 21:10
Alkaline Phosphatase 71 U/L (38-126) 06/12/24 21:10
Troponin I < 0.012 ng/ml 06/12/24 21:23
Data Reviewed
-
Medical Tests (Nuc Med, Echo, EKG etc): Image Personally Visualized and interpreted
Lab Data: Labs Reviewed by me
Old Records: Reviewed
Impression/Plan
-
IMPRESSION:
Uncontrolled hypertension. Stable labs, renal function and no focal deficits. Incomplete [facility] records from institution but he appears to have been taking the prescribed medications.
PLAN:
1. Uncontrolled hypertension - No evidence of end organ damage but dizzy.
- admit to tele/obs
- continue first with current regimen nifedipine, hydralazine, clonidine
- labetolol prn
- place on nicardipine gtt if uncontrolled with labetolol
- no volume o/d.
2. Opioid dependence
- continue buprenorphine 16mg daily
- lexapro 15 daily
3. BPH
- tamsuloin 0.8 daily
DVT PPX - SCDs
Code Status - Full Code
[2024-06-13] MEDS: FLUSH (NSS) 1 FLUSH IV (01:33)
[2024-06-13] MEDS: APRESOLINE 50 MG PO (02:01)
--- NOTE | 2024-06-13 03:00 | PTCARENOTE ---
Patient arrives from ED with 2 senior care guards. Patient AOx3, complaints of 101/10 throbbing headache. BP stable on arrival. Pt able to ambulate into room. Assessment and admission done-see flowsheet. Call heart within reach. Safety maintained. Will
continue to monitor.
[2024-06-13] MEDS: TYLENOL 650 MG PO ×2 (03:06→08:55)
[2024-06-13] MEDS: TRANDATE 10 MG IV (04:09)
[2024-06-13] MEDS: APRESOLINE 100 MG PO ×2 (04:18→19:45)
[2024-06-13] MEDS: PROCARDIA XL (EXTENDED RELEASE) 30 MG PO ×2 (04:18→19:45)
--- NOTE | 2024-06-13 04:22 | PTCARENOTE ---
BP rechecked. 200/116. Notified TRANSITION MGR RN. patient with 10/10 headache as well. Per TRANSITION MGR RN, give PRN labetolol and morning medications early. Will recheck BP in an hr. Will continue to monitor.
[2024-06-13] MEDS: FIORICET 1 TAB PO (06:23)
[2024-06-13] MEDS: LEXAPRO 15 MG PO (08:45)
[2024-06-13] MEDS: SUBUTEX 16 MG SL (08:45)
[2024-06-13 08:55] LABS: Hematocrit 32.7 % (39.0-52.0); Hemoglobin 10.3 g/dL (13.0-18.0); Mean Corp Hgb Conc. 31.5 g/dL (33.0-37.0); Mean Corpuscular Volume 88.9 fL (80.0-94.0); Mean Platelet Volume 9.8 fL (7.4-10.4); Platelet Count 211 10^3/uL (130-400); Red Blood Cell Count 3.68 10^6/uL (4.70-6.10); Red Cell Dist. Width 13.9 % (11.5-14.5); White Blood Cell Count 5.3 10^3/uL (4.8-10.8)
[2024-06-13 09:06] LABS: Blood Urea Nitrogen 45 mg/dl (9-20); Calcium 9.1 mg/dl (8.4-10.2); Carbon Dioxide 25 mmol/L (22-30); Chloride 103 mmol/L (98-107); Estimated Creatinine Clearance 43 ml/min; Glucose 109 mg/dl (70-99); Potassium 5.3 mmol/L (3.5-5.1); Sodium 140 mmol/L (135-145); eGFR 33.12
--- NOTE | 2024-06-13 10:40 | CM ---
Addendum entered by May Page 06/14/24 16:07:
Patient seen with guards- provided number for medical: [phone]
Original Note:
CM reviewed chart, patient from [facility]. CM will continue to follow for all discharge planning needs.
Plan; return to [facility] when stable
Report; [phone]
Fax; [phone]
--- NOTE | 2024-06-13 11:39 | W.PN.UPDATE ---
Update Note
Progress Note Update
I saw and evaluated the patient. I reviewed the resident�s note and agree with findings and plan as documented in the resident�s note.
Pt c/o headache.
Gen: NAD, AAOx3.
Eyes: EOMI, PERRLA, no scleral icterus.
Neck: supple.
CV: RRR, +S1/S2, no m/r/g.
Resp: CTAB, no rales, wheezes, or rhonchi.
Abd: +BS, soft, NT, ND
Skin: No rashes.
Neuro: CN 2-12 intact, non-focal.
Psych: Normal mood and affect.
CT brain:
1. SEVERE MUCOSAL DISEASE throughout the ETHMOID AIR CELLS.
2. Mild acute left sphenoid sinusitis.
3. Mild diffuse cerebral and cerebellar volume loss.
4. Mild periventricular white matter leukoaraiosis.
Uncontrolled hypertension:
-Patient reports compliance with antihypertensive medications at the present
-Continue clonidine/hydralazine/Procardia XL
-Initiate secondary hypertension workup including renal arterial ultrasound, TSH with reflex free T4, urine free metanephrines, aldosterone, renin
-labetalol PRN
Chronic opioid use with dependence: cont Subutex
BPH: cont tamsulosin
FULL/SCDs
--- NOTE | 2024-06-13 12:11 | W.PN.HOSP.TC ---
Today's Communication/Plan
-
secondary hypertension workup pending
Assessment / Plan
Assessment / Plan
54yo M with PMH CKD, uncontrolled HTN, opioid dependence, BH who presented to ED 06/12/24 for dizziness and elevated BPs. Patient was recently admitted for hypertensive urgency and chest pain, and his antihypertensives were adjusted. At time of
discharge his BPs were normal and he was asymptomatic. Not on stimulants for ADD, no alcohol/MJ use for > several months, UDS negative (positive for buprenorphine as expected, compliant with this medication), 1-2 cups coffee/day.
Uncontrolled hypertensive
- Patient reports compliance; med rec pending- will reach out to pharmacist
- Continue home regimen nifedipine, hydralazine, clonidine; labetalol prn
- Will check secondary hypertension workup
Headache
- CT on arrival showed severe mucosal disease, sinusitis
- Pressure headache likely secondary to sinusitis and congestion
- Continue tylenol prn, add nasal saline
Opioid dependence- continue home buprenorphine 16mg qd, lexapro 15 wd
BPH- continue home tamsulosin 0.8 qd
Code status: full
VTE ppx: ambulation as tolerated, SCDs
Diet: 2g Na
Dispo planning: plan to dc back to correctional facility from [facility]
Anticipated Discharge: 24 - 48 hours
Subjective/Interval History
-
Date of Service: June 13, 2024
Admitted to [facility] overnight. Complaining of headache- describes as dull 'pressure' and 'all over' pain on both sides of head, in front and back. It initially subsided but the pain came back quickly. Reports some sensitivity to light, keeping eyes
closed though slightly improved with window blinds closed. Had some dizziness yesterday, none today. Reports some abdominal pain. Denies lightheadedness, dizziness, chest pain, shortness of breath, nausea, vomiting, diarrhea, constipation. Last BM 2
days ago, no black or bloody stools. Ambulates without difficulty at baseline.
Objective Data
-
Labs:
Laboratory Results
06/13/24
07:43
WBC 5.3
Hgb 10.3 L
Hct 32.7 L
Plt Count 211
Sodium 140
Potassium 5.3 H
Chloride 103
Carbon Dioxide 25
BUN 45 H
Creatinine 2.3 H
Glucose 109 H
Calcium 9.1
Vital Signs:
Vital Signs
Temp Pulse Resp BP Pulse Ox
97.7 F 64 14 154/97 97
06/13/24 11:37 06/13/24 11:37 06/13/24 11:37 06/13/24 11:37 06/13/24 11:37
I&O
06/12/24 06/13/24 06/14/24
06:59 06:59 06:59
Intake Total 240 / 240
Balance 240 / 240
Review of Systems
-
History Source: Patient (see subjective)
Physical Exam
-
General: Well Developed, Well Nourished, No Apparent Distress, Conversant and Other (appears uncomfortable due to headache keeps eyes covered for most of conversation)
HEENT: Normocephalic, Atraumatic and Anicteric; Negative Oxygen
Respiratory: Clear to Auscultation and Non Labored Respirations; Negative Wheezes
Cardiac: Regular Rhythm and S1/S2
GI: Soft, Nondistended, Normal Bowel Sounds, Tender (mild TTP) and Other (slight voluntary guarding; no rebound, rigidity)
Musculoskeletal: No Edema
Skin: Warm and Dry
Neuro: Awake, Alert, Oriented, AO x 3 and Nonfocal/Grossly Intact
Psych: Calm and Intact Judgement/Insight
Data Reviewed
-
CT Scan: Image personally visualized and interpreted and Report Reviewed by me
Labs: Labs Reviewed by me
[2024-06-13 12:15] LABS: COVID-19 Antigen Negative (Negative)
[2024-06-13] MEDS: OCEAN, SALINE MIST 2 SPRAYS NASAL (16:54)
[2024-06-13] MEDS: FLOMAX 0.8 MG PO (22:04)
[2024-06-13] MEDS: PAMELOR 25 MG PO (22:04)
[2024-06-14] VITALS (7 sets, daily range): BP systolic 143–195; BP diastolic 90–127
[2024-06-14] MEDS: TRANDATE 10 MG IV (04:04)
[2024-06-14] MEDS: PROCARDIA XL (EXTENDED RELEASE) 30 MG PO (08:19)
[2024-06-14] MEDS: CATAPRES 0.1 MG PO (08:20)
[2024-06-14] MEDS: LEXAPRO 15 MG PO (08:20)
[2024-06-14] MEDS: APRESOLINE 100 MG PO ×2 (08:21→16:18)
[2024-06-14] MEDS: SUBUTEX 16 MG SL (08:22)
--- NOTE | 2024-06-14 09:18 | W.PN.HOSP.TC ---
Today's Communication/Plan
-
increase hydralazine to TID; discharge
Assessment / Plan
Assessment / Plan
54yo M with PMH CKD, uncontrolled HTN, opioid dependence, BH who presented to ED 06/12/24 for dizziness and elevated BPs. Patient was recently admitted for hypertensive urgency and chest pain, and his antihypertensives were adjusted. At time of
discharge his BPs were normal and he was asymptomatic. Not on stimulants for ADD, no alcohol/MJ use for > several months, UDS negative (positive for buprenorphine as expected, compliant with this medication), 1-2 cups coffee/day.
Uncontrolled hypertension
- Patient reports compliance; med rec pending- reached out to pharmacy yesterday for med rec
- Continue home regimen nifedipine, hydralazine, clonidine; labetalol prn. Increase hydralazine to TID.
- Secondary hypertension workup pending- follow up with PCP for results.
- Asymptomatic. Stable for discharge from hospital with outpatient medication adjustment.
Headache- resolved
- CT on arrival showed severe mucosal disease, sinusitis
- Pressure headache likely secondary to sinusitis and congestion
- Continue tylenol prn, nasal saline
Opioid dependence- continue home buprenorphine 16mg qd, lexapro 15 wd
BPH- continue home tamsulosin 0.8 qd
Code status: full
VTE ppx: ambulation as tolerated, SCDs
Diet: 2g Na
Dispo planning: plan to dc back to correctional facility from [facility]
Anticipated Discharge: Today
Subjective/Interval History
-
Date of Service: June 14, 2024
Overnight BPs remained elevated. No complaints this AM, headache from yesterday resolved. Denies lightheadedness, dizziness, chest pain, shortness of breath, nausea, vomiting, diarrhea, constipation. Last BM day before hospital admission. Tolerating
PO diet. Ambulating to bathroom without difficulty.
Objective Data
-
Labs:
Laboratory Results
06/14/24 10:37
06/14/24 10:37
AST 29 U/L (17-59) 06/12/24 21:10
ALT 22 U/L (0-50) 06/12/24 21:10
Troponin I < 0.012 ng/ml 06/12/24 21:23
Vital Signs:
Vital Signs
Temp Pulse Resp BP Pulse Ox
98.0 F 68 18 183/114 98
06/14/24 07:30 06/14/24 08:19 06/14/24 07:30 06/14/24 08:21 06/14/24 07:30
I&O
06/13/24 06/14/24 06/15/24
06:59 06:59 06:59
Intake Total 240 / 240 1080 / 1080
Output Total 1050 / 1050
Balance 240 / 240 30 / 30
Review of Systems
-
History Source: Patient (see subjective)
Physical Exam
-
General: Well Developed, Well Nourished, No Apparent Distress, Comfortable and Conversant
HEENT: Normocephalic, Atraumatic and Anicteric; Negative Oxygen
Respiratory: Clear to Auscultation and Non Labored Respirations; Negative Wheezes
Cardiac: Regular Rhythm and S1/S2
GI: Soft, Nontender, Nondistended and Normal Bowel Sounds
Musculoskeletal: No Edema
Skin: Warm and Dry
Neuro: Awake, Alert, Oriented, AO x 3 and Nonfocal/Grossly Intact
Psych: Calm and Intact Judgement/Insight
Data Reviewed
-
CT Scan: Image personally visualized and interpreted and Report Reviewed by me
Labs: Labs Reviewed by me
[2024-06-14 10:49] LABS: Hematocrit 32.8 % (39.0-52.0); Hemoglobin 10.7 g/dL (13.0-18.0); Mean Corp Hgb Conc. 32.6 g/dL (33.0-37.0); Mean Corpuscular Hgb 28.8 pg (27.0-31.0); Mean Corpuscular Volume 88.4 fL (80.0-94.0); Mean Platelet Volume 8.7 fL (7.4-10.4); Platelet Count 197 10^3/uL (130-400); Red Blood Cell Count 3.71 10^6/uL (4.70-6.10); Red Cell Dist. Width 13.8 % (11.5-14.5); White Blood Cell Count 4.9 10^3/uL (4.8-10.8)
--- NOTE | 2024-06-14 11:04 | W.PN.UPDATE ---
Update Note
Progress Note Update
I saw and evaluated the patient. I reviewed the resident�s note and agree with findings and plan as documented in the resident�s note.
Headache is improved.
Gen: NAD, AAOx3.
Eyes: EOMI, PERRLA, no scleral icterus.
Neck: supple.
CV: remains RRR, +S1/S2, no m/r/g.
Resp: remains CTAB, no rales, wheezes, or rhonchi.
Abd: remains +BS, soft, NT, ND
Skin: No rashes.
Neuro: CN 2-12 intact, non-focal.
Psych: Normal mood and affect.
Renal artery U/S: No sonographic evidence for renal artery stenosis.
CT brain:
1. SEVERE MUCOSAL DISEASE throughout the ETHMOID AIR CELLS.
2. Mild acute left sphenoid sinusitis.
3. Mild diffuse cerebral and cerebellar volume loss.
4. Mild periventricular white matter leukoaraiosis.
Uncontrolled hypertension:
-Patient reports compliance with antihypertensive medications at the present
-Continue clonidine/Procardia XL, increase Hydralazine to 100mg TID
-renal artery U/S unremarkable as above
-urine free metanephrines, aldosterone, renin pending
-labetalol PRN
Other problems:
Hypothyroidism: Start Levoxyl 25mcg daily
CKD3a
Chronic opioid use with dependence: cont Subutex
BPH: cont tamsulosin
FULL/SCDs
Medically cleared for discharge.
Total time spent on d/c = 31 min. This included today's physical exam, progress note, review of laboratory and diagnostic data, preparation of discharge documents and prescriptions, and discussions about the pt's hospital course and discharge plan
with the patient and other medical asst involved in the patient's care.
[2024-06-14 11:06] LABS: Blood Urea Nitrogen 46 mg/dl (9-20); Calcium 9.1 mg/dl (8.4-10.2); Carbon Dioxide 26 mmol/L (22-30); Chloride 100 mmol/L (98-107); Estimated Creatinine Clearance 45 ml/min; Glucose 146 mg/dl (70-99); Potassium 5.1 mmol/L (3.5-5.1); Sodium 137 mmol/L (135-145); eGFR 34.94
[2024-06-14] MEDS: TYLENOL 650 MG PO (12:06)
--- NOTE | 2024-06-14 12:11 | CM ---
CM reviewed chart, patient from [facility], for discharge today. CM will continue to follow for all discharge planning needs.
Plan; return to [facility]
Report; [phone]
Fax; [phone]
--- NOTE | 2024-06-14 12:23 | W.DCSUMMARY ---
Discharge Summary
Discharge Data
Date of Admission: 06/13/24
Date of Discharge: 06/14/24
-
Pending Results: Yes
Additional Pending Results:
Renin activity, aldosterone, aldosterone/renin ratio, 24 hour urine studies (creatinine, metanephrines, normetanephrine)
Hospital Course
Discharging Physician : Dr. Marie, Dr. Patten
Disposition : [facility] patient was prior to admission)
Primary care physician : Unknown
Principal Discharge diagnosis : Uncontrolled hypertension, hypothyroidism, sinusitis
Chronic Discharge diagnosis : Opioid dependence, benign prostatic hyperplasia
Hospital Course : Presented to ED 06/13/24 for dizziness and elevated BPs. Of note, patient was recently admitted for hypertensive urgency and chest pain, at which time his antihypertensive regimen was adjusted with improvement in BP control
prior to discharge. On this admission, his medications were adjusted again and his BPs remained elevated though improved compared to admission. Secondary workup of hypertension was started and several labs are pending at time of discharge. He was
found to be hypothyroid and initiated on Synthroid. On day of discharge he was asymptomatic and stable for discharge with outpatient follow up to continue management of his hypertension.
Important imaging findings :
Renal artery duplex ultrasound 06/13/24
IMPRESSION:
Technically challenging examination. However, no sonographic evidence for renal artery stenosis.
Bilateral small renal cysts.
Procedure findings : N/A
Discharge Plan
-
Patient Disposition: [facility]
Discharge Diagnosis/Procedures: Uncontrolled hypertension, opioid dependence, benign prostatic hyperplasia, hypothyroidism, sinusitis
Condition: Good
Diet: 2 Gram Sodium
Activity: As tolerated
Driving Restrictions: As prior to admission
Bathing Restrictions: OK to Shower
Instructions: Hypothyroidism (underactive thyroid), High blood pressure in adults, Sinus Headache (DC)
Referrals:
[facility] [Family Provider] - Immediately (Follow up with your Primary Care Provider for continuing to titrate your blood pressure medications and treat your hypertension. Follow up with them for results of your lab work from the
hospital.)
Additional Discharge Medication Instructions: New medications:
- Take levothyroxine 25 mcg once daily. Take this medication on an empty stomach in the morning.
- Use nasal saline spray as needed for congestion. You can also use flonase daily.
Medication changes:
- Take hydralazine 100mg three times per day (instead of two times per day).
Follow up with your Primary Care Provider for continued titration of your blood pressure medications. Your PCP will also provide refills of these medications.
Continue your other medications as you were taking prior to this hospitalization.
Prescriptions:
New
hydralazine 50 mg Tablet
100 mg PO TID Qty: 90 0RF
levothyroxine 25 mcg Tablet
25 mcg PO DAILY @ 0600 Qty: 30 0RF
Saline Nasal 0.65 % Aerosol,[place]
2 spray intranasal QIDPRN PRN (Reason: congestion) Qty: 44 0RF
Continued
acetaminophen 325 mg Tablet
650 mg PO BIDPRN PRN (Reason: mild pain)
nortriptyline 25 mg Capsule
25 mg PO HS
tamsulosin 0.4 mg Capsule
0.8 mg PO HS
docusate sodium 100 mg Capsule
100 mg PO BIDPRN PRN (Reason: constipation)
escitalopram oxalate 10 mg Tablet
15 mg PO DAILY
nifedipine 30 mg Tablet Extended Release
30 mg PO BID Qty: 60 0RF
calcium carbonate [Calcium Antacid] 200 mg calcium (500 mg) Tablet,Chewable
400 mg PO BIDPRN PRN (Reason: heartburn)
clonidine HCl 0.1 mg Tablet
0.1 mg PO BID Qty: 60 0RF
dicyclomine 10 mg Capsule
10 mg PO TID Qty: 0 0RF
buprenorphine HCl 8 mg Tablet, Sublingual
16 mg SUBLINGUAL DAILY@0700 Qty: 0 0RF
Discontinued
hydralazine 100 mg Tablet
100 mg PO BID
Discharge Orders:
Discharge Patient (As Directed); Ordered 06/14/24
Ordered By: Murphy Patten
Discharge Date and Time
Print Language: MALAY
[2024-06-14 16:38] LABS: Glucose - Point of Care 107 mg/dl (70-99)
--- NOTE | 2024-06-14 17:18 | PTCARENOTE ---
patient's BP elevated 186/117 during d/c, Scheduled hydralazine given and BP decreased to 159/93, MD Patten and MD Marie aware, Ok to d/c. [facility].
== END 2024-06-14 18:14 | DRG 305 ==
LOC: 4 WEST ACU 11:18
PROVIDERS: Clinical Nurse Specialist Family Health; Student in an Organized Health Care Education/Training Program; ADMITTING PHYSICIAN Internal Medicine; ATTENDING PHYSICIAN Internal Medicine; EMERGENCY PHYSICIAN Emergency Medicine
DX: I16.0 Hypertensive urgency (principal); F11.20 Opioid dependence, uncomplicated; I12.9 Hypertensive chronic kidney disease with stage 1 through stage 4 chronic kidney disease, or unspecified chronic kidney disease; N18.31 Chronic kidney disease, stage 3a; E03.9 Hypothyroidism, unspecified; N40.0 Benign prostatic hyperplasia without lower urinary tract symptoms; J01.90 Acute sinusitis, unspecified; N28.1 Cyst of kidney, acquired; G89.4 Chronic pain syndrome; Z87.891 Personal history of nicotine dependence; Z79.899 Other long term (current) drug therapy; Z11.52 Encounter for screening for COVID-19
CPT/HCPCS: 70450; 80048; 80053; 80306; 80307; 82088; 82962; 83835; 84244; 84439; 84443; 84484; 85025; 85027; 87070; 87502; 87811; 93005; 93975; 99285